=== PATIENT | male | born 1940 | race Caucasian/White ===

== ENCOUNTER → 2019-12-11 09:01 | Outpatient (BNVA) | payer MEDICARE, SELFPAY | PROVIDERS: Family Provider Nurse Practitioner Family; PCP Nurse Practitioner Family; Visit Provider Nurse Practitioner | DX: N40.0 Benign prostatic hyperplasia without lower urinary tract symptoms (principal); R97.20 Elevated prostate specific antigen [PSA] | CPT/HCPCS: 84153 ==

== ENCOUNTER 2020-01-25 13:10 | Outpatient (RCR) | payer MEDICARE, SELFPAY | END 2020-01-26 23:59 | disposition home or self-care (01) | LOC: APT 13:10 | PROVIDERS: Family Provider Nurse Practitioner Family; PCP Nurse Practitioner Family; Referring Provider Nurse Practitioner Family; Visit Provider Nurse Practitioner Family | DX: R53.1 Weakness (principal) | CPT/HCPCS: 97110; 97163 ==

== ENCOUNTER 2020-01-27 06:00 | Outpatient (RCR) | payer MEDICARE, SELFPAY | END 2020-02-26 23:59 | disposition home or self-care (01) | LOC: APT 06:00 | PROVIDERS: Family Provider Nurse Practitioner Family; PCP Nurse Practitioner Family; Referring Provider Nurse Practitioner Family; Visit Provider Nurse Practitioner Family | DX: R53.1 Weakness (principal) | CPT/HCPCS: 97110 ==

== ENCOUNTER → 2020-12-24 09:33 | Outpatient (BNVA) | payer MEDICARE, SELFPAY | PROVIDERS: Family Provider Nurse Practitioner Family; PCP Nurse Practitioner Family; Visit Provider Surgery | DX: R97.20 Elevated prostate specific antigen [PSA] (principal) | CPT/HCPCS: 84153 ==

== ENCOUNTER 2021-03-13 08:09 | Outpatient (CLI) | payer MEDICARE, SELFPAY ==
--- NOTE | 2021-03-13 | CT_ITS ---
WS: [id number] CTA scan of the abdomen pelvis. Additional two-dimensional coronal and sagittal reconstruction was pe rformed. MIP images were also performed. 03/13/2021 Clinical Data: AAA Comparison: CTA of the abdomen and pelvis, 05/11/2019. DLP: 2698.[address] scans at [facility] use at least one of these dose optimization techniques: automat ed exposure control; mA and/or kV adjustment per patient size (includes targeted exams where dose is matched to clinical indication); or iterative reconstruction. Findings: Vascular findings: The patient has an aortic stent graft which is unchanged and shows no endoleak. The [place] abdominal aortic aneurysm has enlarged and now measures 7.3 x 8.8 cm. The left internal iliac aneurysm is no lo nger present. The iliac portions of the stent graft show no leakage. The celiac artery, superior mese nteric artery and renal arteries show no abnormalities. The internal iliac arteries are patent and fl ow into the common femoral arteries. Abdominal and pelvic findings: The lower lungs show no nodules, masses or effusions. There is a large hiatal hernia unchanged. The l iver has a right lobe cyst unchanged. There is a 1.2 cm gallstone present. The adrenal glands show mi nimal enlargement unchanged. The spleen and pancreas are unremarkable. The kidneys show excellent bertha ateral contrast excretion with small bilateral cysts but no hydronephrosis or renal calculi. The stom ach, small bowel and colon are unremarkable. The prostate is enlarged. The bladder is unremarkable. T here is a small fat-containing umbilical hernia. No inguinal hernia is seen. Degenerative change and degenerative disc disease of lower thoracic vertebral bodies in all the lumbar vertebral bodies is no clara. CT/CT angio abdomen pelvis [id number] Impression: 1. No change in aortic stent graft with no endoleak. 2. Slight increase in size of [place] abdominal aortic aneurysm. 3. Removal of left iliac aneurysm. 4. Stable changes of the abdomen and pelvis.
[2021-03-13 08:50] LABS: Blood Urea Nitrogen 20 mg/dL (8-23)
[2021-03-13] MEDS: iohexol 350 mg/mL 100 mL Btl IV (09:02)
== END 2021-03-13 08:10 | disposition home or self-care (01) ==
PROVIDERS: PCP Nurse Practitioner Family; Visit Provider Surgery Vascular Surgery
DX: I71.4 Abdominal aortic aneurysm, without rupture (principal)
CPT/HCPCS: 74174; 82565; 84520; Q9967

== ENCOUNTER 2021-08-11 12:44 | Outpatient (CLI) | payer MEDICARE, SELFPAY ==
--- NOTE | 2021-08-11 12:45 | USCV_ITS ---
Tim Pack Age: 81 Gender: M : 1940 Exam Date: 08/11/2021 13:04 Ordering Phys: Marvin Carvajal MD ([email or web address]) Technologist: Mitchell Dumont Exam Location: [facility] [place] Indication: SOB BP: 134 / 73 HR: 59 Rhythm: Sinus Technical Quality: Adequate MEASUREMENTS (Male / Female) Normal Values 2D ECHO LV Diastolic Diameter PLAX 5.4 cm 4.2 - 5.9 / 3.9 - 5.3 cm LV Systolic Diameter PLAX 4.3 cm IVS Diastolic Thickness 0.9 cm 0.6 - 1.0 / 0.6 - 0.9 cm IVS Systolic Thickness 1.4 cm LVPW Diastolic Thickness 1.2 cm 0.6 - 1.0 / 0.6 - 0.9 cm LVPW Systolic Thickness 1.3 cm LVOT Diameter 2.2 cm LV Ejection Fraction 2D Teich 41.4 % LV Ejection Fraction MOD 2C 57.8 % LV Ejection Fraction 2C AL 56.4 % LA Diameter 4.4 cm LA Width 4.0 cm LA Height 4.9 cm RA Width 4.8 cm RA Height 5.9 cm Aorta at Sinotubular Diameter 3.6 cm DOPPLER AV Peak Velocity 293.3 cm/s LVOT Peak Velocity 79.0 cm/s AV Area Cont Eq vti 1.1 cm squared AV Area Cont Eq pk 1.0 cm squared MV Area PHT 5.0 cm squared Mitral E to A Ratio 0.4 MV E' Velocity 19.5 cm/s Mitral E to LV E' Lateral Ratio 9.9 TR Peak Velocity 225.3 cm/s TR Peak Gradient 20.3 mmHg TV Peak E Velocity 106.0 cm/s Right Atrial Pressure 3.0 mmHg Pulmonary Artery Systolic Pressu 23.3 mmHg FINDINGS Left Ventricle Mildly increased left ventricular cavity size. Moderately decreased left ventricular systolic function. Left ventricular ejection fraction is estimated at 40 %. Global left ventricular hypokinesis. Grade I/IV diastolic dysfunction (abnormal relaxation filling pattern), normal to mildly elevated filling pressures. Right Ventricle The right ventricle is normal in size and function. Right Atrium Normal right atrial size. Left Atrium Moderately increased left atrial size. Mitral Valve Thickened mitral valve. No mitral valve stenosis. Mild mitral valve regurgitation. Aortic Valve Bioprosthetic aortic valve sitting in normal position without significant valvular or paravalvular leak Tricuspid Valve Mild tricuspid valve regurgitation. Pulmonic Valve Structurally normal pulmonic valve without significant stenosis. There is no pulmonic regurgitation. Pericardium Normal pericardium without effusion. Aorta Normal ascending aorta dimension. CONCLUSIONS 1-Mildly increased left ventricular cavity size. Moderately decreased left ventricular systolic function. Left ventricular ejection fraction is estimated at 40 %. Global left ventricular hypokinesis. Grade I/IV diastolic dysfunction (abnormal relaxation filling pattern), normal to mildly elevated filling pressures. 2-Moderately increased left atrial size. 3-Bioprosthetic aortic valve sitting in normal position without significant valvular or paravalvular leak 4-Trace tricuspid valve regurgitation. 5-Right atrial pressure is around 5 mm of mercury. 6-When compared to the prior echocardiogram dated 05 February 2019 there is no significant difference Marvin Carvajal MD (Electronically Signed) Final Date: 11 August 2021 19:54 S
== END 2021-08-11 12:45 | disposition home or self-care (01) ==
PROVIDERS: PCP Nurse Practitioner Family; Visit Provider Internal Medicine Cardiovascular Disease
DX: R06.02 Shortness of breath (principal); I07.1 Rheumatic tricuspid insufficiency; Z95.2 Presence of prosthetic heart valve
CPT/HCPCS: 93306

== ENCOUNTER → 2021-12-24 10:25 | Outpatient (BNVA) | payer MEDICARE, SELFPAY | PROVIDERS: PCP Nurse Practitioner Family; Visit Provider Nurse Practitioner Family | DX: Z20.822 Contact with and (suspected) exposure to COVID-19 (principal) | CPT/HCPCS: 87635 ==

== ENCOUNTER → 2021-12-29 14:09 | Outpatient (BNVA) | payer MEDICARE, SELFPAY | PROVIDERS: PCP Nurse Practitioner Family; Visit Provider Nurse Practitioner | DX: R97.20 Elevated prostate specific antigen [PSA] (principal) | CPT/HCPCS: 84153 ==

== ENCOUNTER 2022-04-19 09:21 | Emergency (ER) | payer MEDICARE, SELFPAY ==
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
[2022-04-19 09:31] VITALS: BP 138/93; PULSE 75; RESP 20; TEMP 36.5; O2SAT 95; BMI 30.9
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
[2022-04-19] MEDS: iodixanol 320 mg/mL 100mL Btl IV (09:53)
[2022-04-19 10:00] VITALS: BP 144/98; PULSE 86; RESP 15; O2SAT 91
--- NOTE | 2022-04-19 10:45 | PC.NURSE ---
notified dr. cramer of blood in urine and abd discomfort he verbalized understanding no further orders.
[2022-04-19 11:00] VITALS: BP 140/97; PULSE 83; RESP 20; O2SAT 91
--- NOTE | 2022-04-19 11:41 | PC.NURSE ---
REPORT GIVEN TO ANDREI DE PAZ AT [facility].
--- NOTE | 2022-04-19 12:00 | PC.NURSE ---
REPORT GIVEN TO FENG ROOF BOLTER OPERATOR. ASSUMED CARE.
[2022-04-19 12:02] VITALS: BP 140/97; PULSE 80; RESP 20; O2SAT 90
== END 2022-04-19 12:04 | disposition short-term general hospital (02) ==
PROVIDERS: Emergency Provider Emergency Medicine
DX: Z04.1 Encounter for examination and observation following transport accident (principal); I97.89 Other postprocedural complications and disorders of the circulatory system, not elsewhere classified; R31.9 Hematuria, unspecified; Z79.01 Long term (current) use of anticoagulants
CPT/HCPCS: 70450; 71260; 72125; 74177; 99285; Q9967

== ENCOUNTER → 2022-06-03 15:19 | Outpatient (BNVA) | payer MEDICARE, SELFPAY | PROVIDERS: Visit Provider Internal Medicine | DX: I48.19 Other persistent atrial fibrillation (principal); I10 Essential (primary) hypertension; I42.9 Cardiomyopathy, unspecified; Z95.2 Presence of prosthetic heart valve; Z95.1 Presence of aortocoronary bypass graft | CPT/HCPCS: 80048; 83880; 99214 ==

== ENCOUNTER 2022-06-22 12:36 | Outpatient (CLI) | payer MEDICARE, SELFPAY ==
[2022-06-22 13:34] LABS: Anion Gap 13.9 (5-19); Blood Urea Nitrogen 19 mg/dL (8-23); Calcium 9.1 mg/dL (8.5-10.5); Carbon Dioxide 24 mmol/L (22-29); Chloride 106 mmol/L (98-107); Glucose 121 mg/dL (65-115); NT Pro B Type Natriuretic Pept 1441 pg/mL (0-450); Osmolality Calculated 294 mOsm/kg (285-295); Potassium 3.9 mmol/L (3.5-5.1); Sodium 140 mmol/L (136-145)
== END 2022-06-22 12:37 | disposition home or self-care (01) ==
LOC: LAB 12:44
PROVIDERS: Visit Provider Internal Medicine
DX: I10 Essential (primary) hypertension (principal); I48.19 Other persistent atrial fibrillation; Z86.79 Personal history of other diseases of the circulatory system
CPT/HCPCS: 36415; 80048; 83880

== ENCOUNTER 2022-09-01 13:57 | Outpatient (CLI) | payer MEDICARE, SELFPAY ==
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
== END 2022-09-01 13:58 | disposition home or self-care (01) ==
PROVIDERS: PCP Family Medicine; Visit Provider Internal Medicine
DX: R01.1 Cardiac murmur, unspecified (principal); Z95.2 Presence of prosthetic heart valve; I08.1 Rheumatic disorders of both mitral and tricuspid valves; I27.20 Pulmonary hypertension, unspecified
CPT/HCPCS: 93306

== ENCOUNTER 2023-01-17 06:00 | Outpatient (RCR) | payer MEDICARE, SELFPAY | END 2023-01-25 23:59 | disposition home or self-care (01) | LOC: APT 06:00 | PROVIDERS: PCP Family Medicine; Visit Provider Family Medicine | DX: I48.91 Unspecified atrial fibrillation (principal); Z86.79 Personal history of other diseases of the circulatory system; Z95.1 Presence of aortocoronary bypass graft | CPT/HCPCS: 97110; 97112; 97161 ==

== ENCOUNTER 2023-01-27 09:01 | Inpatient (IN) | payer MEDICARE, SELFPAY ==
[2023-01-27] VITALS (55 sets, daily range): BP systolic 122–198; BP diastolic 96–123; PULSE 77–127; RESP 16–47; TEMP 36.3; O2SAT 83–96; BMI 25.6
--- NOTE | 2023-01-27 09:13 | ECG_ITS ---
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 Measurements Intervals Hydes Rate: 108 P: 0 MO: 0 QRS: -17 QRSD: 101 T: 120 QT: 344 QTc: 462 Interpretive Statements ATRIAL FIBRILLATION WITH RAPID VENTRICULAR RESPONSE MINIMAL VOLTAGE CRITERIA FOR LVH, CONSIDER NORMAL VARIANT [MEETS CRITERIA IN ONE OF: R(aVL), S(V1), R(V5), R(V5/V6)+S(V1)] POSSIBLE ANTERIOR MYOCARDIAL INFARCTION , OF INDETERMINATE AGE [30 ms Q WAVE IN V3/V4, OR R < 0.2 mV IN V4] MODERATE T-WAVE ABNORMALITY, CONSIDER LATERAL ISCHEMIA [-0.1+ mV T-WAVE IN I/aVL/V5/V6] WARNING: DATA QUALITY MAY AFFECT INTERPRETATION INTERPRETATION BASED ON A DEFAULT AGE OF 40 YEARS No previous ECG available for comparison Electronically Signed On 01-27-2023 18:05:06 PLANER TAILER by Sachin Mercer M.D. [id number] f
--- NOTE | 2023-01-27 09:15 | XRR_ITS ---
PROCEDURE INFORMATION: Exam: XR Chest Exam date and time: 01/27/2023 9:22 AM Age: 83 years old Clinical indication: Pain; Shortness of breath; Angina pectoris; Additional info: Chest pain TECHNIQUE: Imaging protocol: Radiologic exam of the chest. Views: 1 view. COMPARISON: CT chest abdpel w/*[id number] 04/19/2022 9:52 AM FINDINGS: Lungs: There is redistribution and indistinctness of the pulmonary vasculature, in association with haziness of the lungs and small bilateral pleural effusions, which in the setting of cardiomegaly is consistent with pulmonary edema. Pneumonia should be excluded clinically. No pneumothorax. Pleural spaces: See Lungs finding. Heart/Mediastinum: Stable cardiomediastinal silhouette. Vasculature: Abdominal aortic stent is partially included. Bones/joints: Median sternotomy changes seen. Degenerative changes of the spine seen. XR/XR chest 1V portable [id number] IMPRESSION: Imaging findings of pulmonary edema with small bilateral pleural effusions. Pneumonia should be excluded clinically.
[2023-01-27 10:27] LABS: Basophils # 0.1 10^3/uL (0.0-0.1); Basophils % 0.6 %; Eosinophils # 0.1 10^3/uL (0.0-0.8); Eosinophils % 0.7 %; Hematocrit 37.5 % (42.0-52.0); Hemoglobin 11.2 g/dL (11.7-16.6); Lymphocytes # 1.4 10^3/uL (0.8-4.8); Lymphocytes % 16.2 %; Mean Corpuscular HGB Conc 29.9 g/dL (30.0-36.0); Mean Corpuscular Hemoglobin 25.5 pg (28.0-34.0); Mean Corpuscular Volume 85.4 fl (80-94); Monocytes # 0.8 10^3/uL (0.2-0.9); Monocytes % 9.1 %; Neutrophils # 6.41 10^3/uL (1.8-7.7); Neutrophils % 72.9 %; Nucleated Red Blood Cells % 0 %; Platelet Count 190 10^3/cmm (130-400); Red Blood Count 4.39 10^6/uL (4.1-5.3); Red Cell Distribution Width 16.4 % (12.1-15.1); White Blood Count 8.8 10^3/uL (4.0-10.0)
--- NOTE | 2023-01-27 10:32 | W.ED.SOB ---
HPI - SOB/Dyspnea General: Chief Complaint: Shortness of Breath/Dyspnea Stated Complaint: Spurling sent for cardiac Time Seen by Provider: 01/27/23 09:24 Source: patient and family Mode of arrival: ambulatory Limitations: no limitations History of Present Illness: HPI Narrative: This patient was referred to the emergency department from primary care office this morning. He apparently is developed sensation of shortness of breath over the last 3 days. There was no associated chest pain. He states he has not been short of breath like this in the past. He denies any recent illness to include cough fever upper airway congestion etc. 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 No history of thromboembolic events. He is currently taking Eliquis. He has had a history of intermittent atrial fibrillation since his most recent surgery. Denies any nausea vomiting diarrhea dysuria etc. MD elicited complaint: shortness of breath Associated symptoms: Deny abdominal pain, chest pain, extremity pain, fever(s), nausea, palpitations, syncope or vomiting Related Data: Home oxygen amount: none Review of Systems Const: Denies: fever(s), chills or body aches ENMT: Denies: throat pain, odynophagia, nasal discharge or nasal congestion Card: Reports: irregular heart rhythm; Denies: chest pain, palpitations, edema, syncope or pre-syncope Resp: Reports: dyspnea; Denies: productive cough or non-productive cough GI: Denies: abdominal pain, nausea or vomiting : Denies: flank pain, difficulty urinating or dysuria Musc: Denies: back pain, extremity pain or extremity swelling Skin/Breast: Denies: rash Neuro: Denies: headache(s), numbness in extremities or weakness in extremities PFSH ED PFSH: Medical History A-fib Ascending aorta dilatation Coronary artery disease History of hypertension Hx of cardiomyopathy Surgical History Aortic valve replaced Hx of aortic valve replacement Hx of CABG Social History Smoking and tobacco status: never smoked Physical Exam Narrative: EXAM NARRATIVE: Patient is very alert and interactive. Spontaneous eye opening and speech is goal-directed. Const: COMMON NORMALS: no acute distress, average body habitus and patient oriented x3 GENERAL APPEARANCE: cooperative and comfortable HENMT: COMMON NORMALS: normocephalic, Normal nasal mucous membranes and turbinates present, moist oral mucous membranes and oropharynx normal HEAD & SCALP: normocephalic NOSE: Normal nasal mucous membranes and turbinates present Eye: COMMON NORMALS: Equal, round and reactive pupils present, EOMs intact bilaterally and conjunctivae normal CONJUNCTIVA: Yes conjunctivae normal PUPIL: Yes Equal, round and reactive pupils present Neck/C-Spine: COMMON NORMALS: full ROM, no lymphadenopathy and supple Chest: COMMONS NORMALS: normal inspection of the chest and normal palpation of entire chest wall Resp: EFFORT & INSPECTION: Yes tachypneic AUSCULTATION: wheezes Cardio: COMMON NORMALS: No murmurs present (Cardio) and Peripheral pulses 2+ throughout RHYTHM: abnormal rhythm irregularly irregular PERIPHERAL PULSES: Peripheral pulses 2+ throughout GI: COMMON NORMALS: Normal to inspection, nondistended, normoactive bowel sounds present, Soft to palpation and non-tender PALPATION: Yes Soft to palpation : COMMON NORMALS: Yes no CVA tenderness BLADDER/KIDNEY EXAM: Yes no CVA tenderness Back/Pelvis: COMMON NORMALS: no CVA tenderness, thoracic and lumbar spine normal to inspection, no thoracic nor lumbar tenderness and thoraco-lumbar ROM normal Extremity: COMMON NORMALS: normal to inspection, full ROM, capillary refill normal, no calf tenderness and no pedal edema Neuro: COMMON NORMALS: patient oriented x3, moves all extremities, no focal motor deficits and no sensory deficits noted CRANIAL NERVES: Yes CN normal except as noted Psych: COMMON NORMALS: mental status grossly normal and cooperative Skin: COMMON NORMALS: no rashes or lesions noted, no wounds and turgor normal GENERAL SKIN EXAM: no rashes or lesions noted and turgor normal Course Reevaluation(s): Reevaluation #1: During pharmacy reconciliation of his medications we became aware that his is only giving him a half his usual recommended dose of Eliquis and half of his usual dose of valsartan. Time: 11:28 Vital Signs: Vital signs: Vital Signs Pulse Rate 96 01/27/23 12:30 Respiratory Rate 16 01/27/23 10:48 Blood Pressure 139/96 01/27/23 12:00 Pulse Oximetry 94 01/27/23 12:30 Oxygen Delivery Me thod 01/27/23 10:48 Oxygen Flow Rate 2 01/27/23 10:48 MDM - SOB/Dyspnea Medical Decision Making This gentleman made his way to the emergency department after referred from his primary care office for progressive shortness of breath over the last 3 days without fever or chest pain. Does have a known history of coronary disease with prior bypass as well as valve replacement. He is prescribed Eliquis and valsartan but apparently his has been reducing those doses unbeknownst to his clinicians. Work-up ensued in the emergency department was notable in that he had a initial EKG which showed rapid ventricular response in the 1 10-1 15 range with no elevation in his baseline troponin with a essentially unchanged serial troponin. Serial EKGs were also were obtained which revealed more controlled ventricular rate with sustained A-fib without any evidence of ischemic changes. A CT PA was obtained because of reduced anticoagulant dosing to ensure no evidence of pulmonary embolus. That was a reassuring study and confirmed his clinical and biochemical diagnosis of likely right heart failure which may have been either precipitated by his atrial fibs or vice versa. No evidence of a ongoing ischemia but probably myocardial injury related to his ventricular strain. [facility] further evaluation for his condition. Differential Diagnosis Likely congestive heart failure; Unlikely acute exacerbation of chronic obstructive airways disease, community acquired pneumonia or pulmonary embolism Medical Records I reviewed the patient's medical records. Lab Data I reviewed the patient's lab results. 01/27/23 10:15 01/27/23 10:15 Labs/Radiology: Radiology Impressions Chest X-Ray 01/27/23 09:15 IMPRESSION: Imaging findings of pulmonary edema with small bilateral pleural effusions. Pneumonia should be excluded clinically. Chest CTA 01/27/23 10:37 IMPRESSION: 1. No pulmonary embolism through the lobar branches. 2. No RIGHT heart strain. 3. Marked LEFT heart enlargement. 4. Tricuspid regurgitation into hepatic veins. 5. Small bilateral pleural effusions with mild pulmonary venous congestion. 6. Moderate size hiatal hernia. Laboratory Results WBC 8.8 10^3/uL (4.0-10.0) 01/27/23 10:15 RBC 4.39 10^6/uL (4.1-5.3) 01/27/23 10:15 Hgb 11.2 g/dL (11.7-16.6) L 01/27/23 10:15 Hct 37.5 % (42.0-52.0) L 01/27/23 10:15 MCV 85.4 fl (80-94) 01/27/23 10:15 MCH 25.5 pg (28.0-34.0) L 01/27/23 10:15 MCHC 29.9 g/dL (30.0-36.0) L 01/27/23 10:15 RDW 16.4 % (12.1-15.1) H 01/27/23 10:15 Plt Count 190 10^3/cmm (130-400) 01/27/23 10:15 MPV 10.0 fL (7.4-10.4) 01/27/23 10:15 Neut % (Auto) 72.9 % 01/27/23 10:15 Lymph % (Auto) 16.2 % 01/27/23 10:15 [place] % (Auto) 9.1 % 01/27/23 10:15 Eos % (Auto) 0.7 % 01/27/23 10:15 Baso % (Auto) 0.6 % 01/27/23 10:15 Neut # (Auto) 6.41 10^3/uL (1.8-7.7) 01/27/23 10:15 Lymph # (Auto) 1.4 10^3/uL (0.8-4.8) 01/27/23 10:15 [place] # (Auto) 0.8 10^3/uL (0.2-0.9) 01/27/23 10:15 Eos # (Auto) 0.1 10^3/uL (0.0-0.8) 01/27/23 10:15 Baso # (Auto) 0.1 10^3/uL (0.0-0.1) 01/27/23 10:15 Nucleated RBC % (auto) 0 % 01/27/23 10:15 Nucleated RBCs # 0.0 /100WBC 01/27/23 10:15 Sodium 147 mmol/L (136-145) H 01/27/23 10:15 Potassium 3.9 mmol/L (3.5-5.1) 01/27/23 10:15 Chloride 112 mmol/L (98-107) H 01/27/23 10:15 Carbon Dioxide 20 mmol/L (22-29) L 01/27/23 10:15 Anion Gap 18.9 (5-19) 01/27/23 10:15 BUN 38 mg/dL (8-23) H 01/27/23 10:15 Creatinine 1.0 mg/dL (0.7-1.2) 01/27/23 10:15 GFR Calculation Not Reportable 01/27/23 10:15 Glucose 148 mg/dL (65-115) H 01/27/23 10:15 Calculated Osmolality 316 mOsm/kg (285-295) H 01/27/23 10:15 Calcium 9.6 mg/dL (8.5-10.5) 01/27/23 10:15 Total Bilirubin 0.4 mg/dL (0.15-1.2) 01/27/23 10:15 AST 62 U/L (0-40) H 01/27/23 10:15 ALT 86 U/L (0-41) H 01/27/23 10:15 Alkaline Phosphatase 73 U/L (40-130) 01/27/23 10:15 Troponin T Baseline 326 ng/L (0-15) H* 01/27/23 10:15 Troponin T 120 Minute 322.3 ng/L (0-15) H 01/27/23 12:14 Delta Troponin T -3.7 ABS# (0-10) L 01/27/23 12:14 NT-Pro-B Natriuret Pep 93277 pg/mL (0-450) H 01/27/23 10:15 Total Protein 6.4 g/dL (6.6-8.7) L 01/27/23 10:15 Albumin 4.1 g/dL (3.5-5.2) 01/27/23 10:15 Globulin 2.3 g/dL (1.3-4.6) 01/27/23 10:15 EKG Data EKG 1: I personally reviewed and interpreted this EKG as follows: Interpretation: Contemporaneous review of resting EKG reveals atrial fibrillation with a rapid ventricular response of 108 bpm. There is normal QTc. Normal QRS duration. Occasional extrasystoles. No acute ischemic changes at this time. EKG 2: I personally reviewed and interpreted this EKG as follows: Interpretation: Contemporaneous review of second EKG this visit reveals atrial fibrillation with a controlled ventricular response at this time. No other acute changes noted at this time. Discharge Plan Discharge Patient Disposition: Admitted As Inpatient Clinical Impression: A-fib, Congestive heart failure, Myocardial injury Condition: Stable Prescriptions: No Action latanoprost 0.005 % drops 1 drop ophthalmic (eye) BEDTIME Rx Instructions: BOTH EYES multivitamin Tablet 1 tab PO QPM coenzyme Q10 [CoQ-10] 100 mg Capsule 100 mg PO QPM valsartan 40 mg tablet 20 mg PO QPM Eliquis 5 mg tablet 2.5 mg PO QPM Referrals: Gómez Figueroa MD [Primary Care Provider] - Coding Level of Care Code ED Automation Clerk for Gretta Cedeño
--- NOTE | 2023-01-27 10:37 | CT_ITS ---
WS: [id number] CT CHEST ANGIOGRAPHY WITH REFORMATS HISTORY: tachypnea and sob TECHNIQUE: Contiguous axial images are obtained through the chest during arterial injection of intrav enous contrast. Images are reconstructed to evaluate the pulmonary arteries. MIP imaging also reviewe d. All CT scans at [facility] use at least one of these dose optimization techniques: automat ed exposure control; mA and/or kV adjustment per patient size (includes targeted exams where dose is matched to clinical indication); or iterative reconstruction. CONTRAST: Omnipaque 350; 95 mL IV. DLP: 361.44 mGy.cm COMPARISON: 04/19/2022 Study is compromised by motion and breathing artifact. Good opacification of the pulmonary artery. Centrally into the lobar branches no pulmonary embolism. Opacification becomes limited in the segmental branches. Pulmonary artery size is normal. Mildly ecta tic thoracic aorta. No aneurysmal dilatation. Prior CABG. Marked LEFT heart enlargement. Tricuspid re gurgitation into hepatic veins. No pericardial effusion. Small bilateral pleural effusions with mild hazy opacification over both lungs from venous congestion . No mediastinal or hilar adenopathy. Large hiatal hernia. LEFT hepatic cyst 1.5 cm. Heavy calcification in the splenic artery. Marked bila teral adrenal hyperplasia, LEFT greater than RIGHT. Thoracic curvature and advanced degenerative kerr ges. CT/CT angio chest PE protcl [id number] IMPRESSION: 1. No pulmonary embolism through the lobar branches. 2. No RIGHT heart strain. 3. Marked LEFT heart enlargement. 4. Tricuspid regurgitation into hepatic veins. 5. Small bilateral pleural effusions with mild pulmonary venous congestion. 6. Moderate size hiatal hernia.
--- NOTE | 2023-01-27 10:44 | PC.PHAR ---
pts verified pts medications-rx filled 01/14/23 90d/s for eliquis 5mg bid pts states she only give 1/2 tab (2.5mg) qpm-valsartan filled 01/03/23 90d/s for 40mg qpm pts states she gives 1/2 tab (20mg)qpm-notes are made in the pharmacy comments
[2023-01-27] MEDS: ipratropium-albuterol 3 mL Neb INHALATION (10:46)
[2023-01-27 10:51] LABS: Alanine Aminotransferase 86 U/L (0-41); Albumin Level 4.1 g/dL (3.5-5.2); Alkaline Phosphatase 73 U/L (40-130); Anion Gap 18.9 (5-19); Aspartate Amino Transferase 62 U/L (0-40); Blood Urea Nitrogen 38 mg/dL (8-23); Calcium 9.6 mg/dL (8.5-10.5); Carbon Dioxide 20 mmol/L (22-29); Chloride 112 mmol/L (98-107); Globulin 2.3 g/dL (1.3-4.6); Glucose 148 mg/dL (65-115); NT Pro B Type Natriuretic Pept 13052 pg/mL (0-450); Osmolality Calculated 316 mOsm/kg (285-295); Potassium 3.9 mmol/L (3.5-5.1); Sodium 147 mmol/L (136-145); Total Bilirubin 0.4 mg/dL (0.15-1.2); Total Protein 6.4 g/dL (6.6-8.7)
[2023-01-27 10:52] LABS: Troponin(5th) Baseline 326 ng/L (0-15)
--- NOTE | 2023-01-27 11:24 | ECG_ITS ---
[facility] Test Date: 2023-01-27 Pat Name: Tim Pack Department: Room: Gender: Male Fuel Quality Tech: : 1940 Requested By: Shasta Gamez Order Number: [id number] Marisa MD: Sachin Mercer M.D. Measurements Intervals [place] Rate: 88 P: 0 IA: 0 QRS: -22 QRSD: 100 T: 142 QT: 386 QTc: 467 Interpretive Statements ATRIAL FIBRILLATION MODERATE VOLTAGE CRITERIA FOR LVH, CONSIDER NORMAL VARIANT [MEETS CRITERIA IN ONE OF: R(aVL), S(V1), R(V5), R(V5/V6)+S(V1)] POSSIBLE ANTERIOR MYOCARDIAL INFARCTION , OF INDETERMINATE AGE [30 ms Q WAVE IN V3/V4, OR R < 0.2 mV IN V4] MODERATE T-WAVE ABNORMALITY, CONSIDER LATERAL ISCHEMIA [-0.1+ mV T-WAVE IN I/aVL/V5/V6] Compared to ECG 01/27/2023 09:13:37 No significant changes Electronically Signed On 01-27-2023 18:12:33 SECURITY INCIDENT RESPONSE SPECIALIST by Sachin Mercer M.D. [id number]
[2023-01-27] MEDS: iohexol 350 mg/mL 500 mL Btl (per mL) 95 ML IV (12:03)
[2023-01-27 12:54] LABS: Troponin 5 2HR Delta -3.7 ABS# (0-10)
[2023-01-27 12:55] LABS: Troponin 5 2HR 322.3 ng/L (0-15)
--- NOTE | 2023-01-27 13:04 | PM.HP ---
Providers/Chief Complaint Primary Care Provider: Gómez Figueroa MD Chief Complaint: Henry sent for cardiac History of Present Illness Tim Pack is a 83 year old male bovine aortic valve, triple CABG, afib, takes Eliquis, presented with chief complaint of worsening of shortness of breath. Patient has been increasing dyspnea on exertion for last 1 week, he could barely take 5-10 steps on ground level, no chest pain, fever, nausea, vomiting but he is describing his shortness of breath as choking sensation, in the ER he has been diagnosed with CHF exacerbation, CTA ruled out PE, vascular congestion evident on chest x-ray and CTA lung. EKG showing A-fib related changes no acute infarctive changes present. Patient is legally blind, is at the bedside who helped to get more history, Patient is not in any active chest pain Blood pressure is high I will put him on BiPAP, required Andres catheter, IV Lasix 60 mg, might need nitroglycerin drip Dr. Reyes consulted for NSTEMI I have started patient on ACS protocol, therapeutic Plavix and aspirin given patient troponin 326 Review of Systems Const: Denies: fever(s) Eyes: Denies: change in vision ENMT: Denies: throat pain Card: Denies: chest pain Resp: Reports: dyspnea GI: Denies: abdominal pain or heartburn : Denies: urinary dribbling Skin/Breast: Denies: rash Neuro: Denies: headache(s) Psych: Denies: anxiety Endo: Denies: polyuria Jerry/Lymph: Denies: easy bruising All/Imm: Denies: urticaria Medications/Allergies Home Medications Medication Instructions Recorded Confirmed Last Taken Type latanoprost 0.005 % eye drops 1 drop ophthalmic (eye) BEDTIME 06/03/20 01/27/23 01/26/23 History coenzyme Q10 100 mg capsule 100 mg PO QPM 04/19/22 01/27/23 01/26/23 History (CoQ-10) multivitamin 1 tab PO QPM 04/19/22 01/27/23 01/26/23 History apixaban 5 mg tablet (Eliquis) 2.5 mg PO QPM 01/27/23 01/27/23 01/26/23 History see pharmacy comment valsartan 40 mg tablet 20 mg PO QPM 01/27/23 01/27/23 01/26/23 History see pharmacy comment Allergies Allergy/AdvReac Type Severity Reaction Status Date / Time Penicillins Allergy Unknown Verified 01/27/23 10:41 Sulfa (Sulfonamide Allergy Unknown Verified 01/27/23 10:41 Antibiotics) PFSH Acute PFSH: Medical History (Updated 01/27/23 @ 14:33 by Marvin Bautista MD) A-fib Ascending aorta dilatation Coronary artery disease History of hypertension Hx of arteriosclerotic cardiovascular disease Hx of cardiomyopathy Hx of chest pain Surgical History (Updated 01/27/23 @ 14:33 by Marvin Bautista MD) Aortic valve replaced Hx of aortic valve replacement Hx of appendectomy Hx of CABG Hx of right cataract extraction Family History (Updated 01/27/23 @ 14:32 by Marvin Bautista MD) Denies family history of CAD (coronary artery disease) Social History Smoking and tobacco status: never smoked Vitals/I&O/Wt Last Vital Signs Pulse 96 01/27/23 12:30 Resp 16 01/27/23 10:48 BP 139/96 01/27/23 12:00 Pulse Ox 94 01/27/23 12:30 O2 Del Method 01/27/23 10:48 O2 Flow Rate 2 01/27/23 10:48 Weight last 48 hrs Weight 67.585 kg Physical Exam Narrative: Was not cooperative elderly male Mild CHF exacerbation signs Bilateral rhonchi present Currently on 2 L nasal cannula Hypertensive No active chest pain S1, S2 aortic systolic murmur Abdomen soft Lower extremity 1+ edema Patient is legally blind Able to answer all my questions Pleasant and cooperative at the bedside Data 01/27/23 10:15 01/27/23 10:15 A&P Assessment and plan (1) Congestive heart failure: (2) Myocardial injury: (3) Hx of CABG: (4) Aortic valve replaced: (5) History of hypertension: (6) A-fib: (7) NSTEMI (non-ST elevated myocardial infarction): Plan Patient has angina equivalent symptoms Dyspnea on exertion Pulmonary edema Drowning feeling Put patient on BiPAP Andres catheter placement IV Lasix Requested echo Dr. Reyes consulted EKG without infarctive changes Troponin with significant elevation Chest pain Might need angiogram History of triple bypass in the past Bovine aortic valve in place A-fib without RVR Switch to therapeutic Lovenox Hold Eliquis Last dose of Eliquis was yesterday night 3/ Acute hypoxia related to CHF exacerbation Diastolic CHF exacerbation Decompensated Wean oxygen to room air before discharge Currently requiring oxygen BiPAP overnight Hypernatremia Monitor closely with diuresis Patient clinically is fluid overload Full code Cardiac diet CT rule out PE Patient is legally blind DVT prophylaxis: With therapeutic Lovenox Spoke with Dr. Eric Jauregui Medical Necessity Statement*: More than 2 midnights anticipated Diagnoses Congestive heart failure I50.9 Myocardial injury I5A Hx of CABG Z95.1 Aortic valve replaced Z95.2 History of hypertension Z86.79 A-fib I48.91 NSTEMI (non-ST elevated myocardial infarction) I21.4
--- NOTE | 2023-01-27 14:02 | USCV_ITS ---
Tim Pack Age: 83 Gender: M : 1940 Exam Date: 01/27/2023 14:50 Ordering Phys: Marvin Bautista MD Technologist: Mitchell Dumont [place] [facility] [place]: unstable angina BP: 140 / 76 HR: 85 Rhythm: Sinus Technical Quality: Adequate MEASUREMENTS (Male / Female) Normal Values 2D ECHO LV Diastolic Diameter PLAX 6.2 cm 4.2 - 5.9 / 3.9 - 5.3 cm LV Systolic Diameter PLAX 4.4 cm IVS Diastolic Thickness 1.3 cm 0.6 - 1.0 / 0.6 - 0.9 cm IVS Systolic Thickness 1.6 cm LVPW Diastolic Thickness 1.1 cm 0.6 - 1.0 / 0.6 - 0.9 cm LVPW Systolic Thickness 1.4 cm LVOT Diameter 2.0 cm LV Ejection Fraction 2D Teich 54.2 % LV Ejection Fraction MOD 2C 40.1 % LV Ejection Fraction 2C AL 40.3 % LA Diameter 5.6 cm Aorta at Sinotubular Diameter 4.5 cm M-MODE Aortic Annulus Diameter 5.0 cm LA Ao Ratio MM 1.0 MV E Point Septal Separation 1.4 cm FINDINGS Left Ventricle Mildly dilated left-ventricle. Severe diffuse hypokinesia of the septum, anteroseptum and LV apex. LV ejection fraction around 30-35%, visual Right Ventricle Appears to be of normal size and ejection fraction Right Atrium Appears to be of normal size Left Atrium Moderately increased left atrial size. Mitral Valve Thickened mitral valve. Aortic Valve Minimally thickened tissue valve Tricuspid Valve No gross abnormalities noted Pulmonic Valve Pulmonic valve not well visualized. Pericardium No pericardial effusion. Aorta Dilated aortic root, measuring 4.6 cm at the level of the sinuses and 4.5 cm at the level of the sinotubular junction IVC Inferior vena cava not visualized. CONCLUSIONS Mildly dilated left-ventricle. Severe diffuse hypokinesia of the septum, anteroseptum and LV apex. LV ejection fraction around 30-35%, visual. Moderately increased left atrial size. Thickened mitral valve. Minimally thickened tissue valve at the aortic position Aortic root measured 4.6 cm at the level of the sinuses . There is no pericardial effusion. Compared to the study from 09/01/2022, there is slight drop in the LV ejection fraction Dr Naty Reyes MD FAC (Electronically Signed) Final Date: 27 January 2023 18:47 S
[2023-01-27 14:58] LABS: Thyroid Stimulating Hormone 2.85 uIU/mL (0.27-4.20)
--- NOTE | 2023-01-27 15:15 | ECG_ITS ---
[facility] Test Date: 2023-01-27 Pat Name: Tim Pack Department: Room: 108 Gender: Male General Internist And Physician Leader: : 1940 Requested By: Shasta Gamez Order Number: [id number] Cunningham MD: Sachin Mercer M.D. Measurements Intervals [place] Rate: 83 P: 0 CO: 0 QRS: -31 QRSD: 103 T: 124 QT: 411 QTc: 486 Interpretive Statements ATRIAL FIBRILLATION LEFT AXIS DEVIATION [QRS AXIS < -30] MODERATE VOLTAGE CRITERIA FOR LVH, CONSIDER NORMAL VARIANT [MEETS CRITERIA IN ONE OF: R(aVL), S(V1), R(V5), R(V5/V6)+S(V1)] POSSIBLE ANTERIOR MYOCARDIAL INFARCTION , OF INDETERMINATE AGE [30 ms Q WAVE IN V3/V4, OR R < 0.2 mV IN V4] MODERATE T-WAVE ABNORMALITY, CONSIDER LATERAL ISCHEMIA [-0.1+ mV T-WAVE IN I/aVL/V5/V6] Compared to ECG 01/27/2023 11:24:28 Left-axis deviation now present Myocardial infarct finding still present T-wave abnormality still present Possible ischemia still present Electronically Signed On 01-27-2023 18:09:53 C S S REPRESENTATIVE by Sachin Mercer M.D. [id number]
[2023-01-27] MEDS: FUROsemide 10 mg/mL SDV 10mL 60 MG IVP (16:51)
[2023-01-27] MEDS: aspirin 325 mg EC Tablet PO (16:51)
[2023-01-27] MEDS: clopidogrel 300 mg Tablet PO (17:24)
--- NOTE | 2023-01-27 17:53 | PM.CONSULT ---
Providers/Reason For Consult Consulting Physician/Specialty*: PAULA Reyes MD/cardiology Reason for Consult*: Patient is a shortness of breath/features of CHF/elevated troponin T Requesting Physician: Dr. Bautista Attending Physician: Marvin Bautista MD Primary Care Provider: Gómez Figueroa MD History of Present Illness History of Present Illness Tim Pack is a 83 year old male with a history of coronary artery disease, status post coronary bypass surgery, status post ascending aortic aneurysm repair, he is presenting with progressive shortness of breath for the last 4 days. This patient is known to have LV dysfunction. The LV ejection fraction was around 30 to 35% by echocardiogram in August of last year. He apparently has been in his baseline state of health up until the last Tuesday when he started having shortness of breath with activities. The shortness of breath has been gradually getting worse. He also has been having a dry cough and some swelling of the lower extremities. No fever, chills. No abdominal pain or dysuria. No other associated symptoms. This patient had a PCI at the [facility] 10 years ago. He underwent a three-vessel coronary bypass surgery in 2012 along with aortic aneurysm repair. Apparently the aneurysm repair did not work well and he had to go for a redo surgery at the [facility] in [place] later on. Since the redo surgery, he has been doing okay with no significant symptoms. He has not had any chest pain. Even before the bypass surgery, his main symptom was shortness of breath. He also is known to have atrial fibrillation and is on long-term oral anticoagulation. He has a history of hematuria. The dose of the Eliquis was cut back to 2.5 mg p.o. once a day. Review of Systems Narrative: CONSTITUTIONAL: No fever or chills. EYES: No blurring of vision or other visual disturbances lately. ENT: No hoarseness of voice, auditory disturbances or sore throat. CARDIOVASCULAR: As mentioned above. RESPIRATORY: Shortness of breath as mentioned GASTROINTESTINAL: No hematemesis or melena. GENITOURINARY: History of BPH and hematuria INTEGUMENTARY: No skin rashes or history of skin cancer. NEURO: No transient ischemic attacks or amaurosis. PSYCHIATRIC: No history of psychosis or major depression. HEMATOLOGIC: History of hematuria with the higher dose of Eliquis ENDOCRINE: No history of polyuria or polydipsia. MUSCULOSKELETAL: No recent joint pain or swelling. ALLERGY/IMMUNOLOGY: As mentioned above. Medications/Allergies Home Medications Medication Instructions Recorded Confirmed Last Taken Type latanoprost 0.005 % eye drops 1 drop ophthalmic (eye) BEDTIME 06/03/20 01/27/23 01/26/23 History coenzyme Q10 100 mg capsule 100 mg PO QPM 04/19/22 01/27/23 01/26/23 History (CoQ-10) multivitamin 1 tab PO QPM 04/19/22 01/27/23 01/26/23 History apixaban 5 mg tablet (Eliquis) 2.5 mg PO QPM 01/27/23 01/27/23 01/26/23 History see pharmacy comment valsartan 40 mg tablet 20 mg PO QPM 01/27/23 01/27/23 01/26/23 History see pharmacy comment Allergies Allergy/AdvReac Type Severity Reaction Status Date / Time Penicillins Allergy Unknown Verified 01/27/23 10:41 Sulfa (Sulfonamide Allergy Unknown Verified 01/27/23 10:41 Antibiotics) Current Medications Generic Name Dose Route Start Last Admin Trade Name Freq PRN Reason Stop Dose Admin Enoxaparin Sodium 70 mg 01/27/23 15:00 01/27/23 16:52 Enoxaparin 80 Mg/0.8 Ml Syringe SUBCUT Not Given Q12H KULWINDER Furosemide 60 mg 01/27/23 16:33 01/27/23 16:51 Furosemide 10 Mg/Ml Sdv 10ml IVP 60 mg Q12H KULWINDER Administration PFSH Acute PFSH: Medical History A-fib Ascending aorta dilatation Coronary artery disease History of hypertension Hx of arteriosclerotic cardiovascular disease Hx of cardiomyopathy Hx of chest pain Surgical History Aortic valve replaced Hx of aortic valve replacement Hx of appendectomy Hx of CABG Hx of right cataract extraction Family History Denies family history of CAD (coronary artery disease) Social History Smoking and tobacco status: never smoked Vitals/I&O/Wt Last Vital Signs Pulse 98 01/27/23 13:30 Resp 16 01/27/23 10:48 BP 140/104 01/27/23 13:30 Pulse Ox 91 01/27/23 13:30 O2 Del Method 01/27/23 10:48 O2 Flow Rate 2 01/27/23 10:48 Weight last 48 hrs Weight 149 lb 6 oz Weight 149 lb Physical Exam Narrative: GENERAL: The patient is alert and oriented times three. Not in any acute distress. He is blind bilaterally HEENT: No significant pallor, icterus or lymphadenopathy.Oral cavity: There are no mucous membrane lesions. NECK: Trachea appears to be central. No masses noted. No JVD or thyromegaly appreciated. RESPIRATORY: Chest is symmetrical. No intercostals muscle retraction or any accessory muscle activation. There is no chest wall tenderness. Breath sounds are heard bilaterally. No rales or rhonchi heard. No evidence of any consolidation. BREASTS: Deferred. HEART: Short systolic murmur at the base of the heart. No diastolic murmurs.. No S3 or S4. No significant murmurs. No pericardial rub ABDOMEN: No vessel pulsations or distention. No tenderness. No organomegaly appreciated. Bowel sounds are normally heard. : Deferred. RECTAL: Deferred. LYMPHATIC: No lymphadenopathy noted in the neck. EXTREMITIES: 1+ edema with no cyanosis MUSCULOSKELETAL: No acute joint deformities or swelling SKIN: There are no significant rashes or ecchymosis NEUROPSYCHIATRIC: The patient is alert and oriented x3. Appears to be in a good mood. No tremors or rigidity noted. Urinary Catheter Management: Andres: Cath Placed During This Visit: yes Urinary Catheter Date of Insertion: 01/27/23 Urinary Catheter Time of Insertion: 15:50 Data 01/27/23 10:15 01/27/23 10:15 Other Labs: Laboratory Last Values WBC 8.8 10^3/uL (4.0-10.0) 01/27/23 10:15 RBC 4.39 10^6/uL (4.1-5.3) 01/27/23 10:15 Hgb 11.2 g/dL (11.7-16.6) L 01/27/23 10:15 Hct 37.5 % (42.0-52.0) L 01/27/23 10:15 MCV 85.4 fl (80-94) 01/27/23 10:15 MCH 25.5 pg (28.0-34.0) L 01/27/23 10:15 MCHC 29.9 g/dL (30.0-36.0) L 01/27/23 10:15 RDW 16.4 % (12.1-15.1) H 01/27/23 10:15 Plt Count 190 10^3/cmm (130-400) 01/27/23 10:15 MPV 10.0 fL (7.4-10.4) 01/27/23 10:15 Neut % (Auto) 72.9 % 01/27/23 10:15 Lymph % (Auto) 16.2 % 01/27/23 10:15 [place] % (Auto) 9.1 % 01/27/23 10:15 Eos % (Auto) 0.7 % 01/27/23 10:15 Baso % (Auto) 0.6 % 01/27/23 10:15 Neut # (Auto) 6.41 10^3/uL (1.8-7.7) 01/27/23 10:15 Lymph # (Auto) 1.4 10^3/uL (0.8-4.8) 01/27/23 10:15 [place] # (Auto) 0.8 10^3/uL (0.2-0.9) 01/27/23 10:15 Eos # (Auto) 0.1 10^3/uL (0.0-0.8) 01/27/23 10:15 Baso # (Auto) 0.1 10^3/uL (0.0-0.1) 01/27/23 10:15 Nucleated RBC % (auto) 0 % 01/27/23 10:15 Nucleated RBCs # 0.0 /100WBC 01/27/23 10:15 Sodium 147 mmol/L (136-145) H 01/27/23 10:15 Potassium 3.9 mmol/L (3.5-5.1) 01/27/23 10:15 Chloride 112 mmol/L (98-107) H 01/27/23 10:15 Carbon Dioxide 20 mmol/L (22-29) L 01/27/23 10:15 Anion Gap 18.9 (5-19) 01/27/23 10:15 BUN 38 mg/dL (8-23) H 01/27/23 10:15 Creatinine 1.0 mg/dL (0.7-1.2) 01/27/23 10:15 GFR Calculation Not Reportable 01/27/23 10:15 Glucose 148 mg/dL (65-115) H 01/27/23 10:15 Calculated Osmolality 316 mOsm/kg (285-295) H 01/27/23 10:15 Calcium 9.6 mg/dL (8.5-10.5) 01/27/23 10:15 Total Bilirubin 0.4 mg/dL (0.15-1.2) 01/27/23 10:15 AST 62 U/L (0-40) H 01/27/23 10:15 ALT 86 U/L (0-41) H 01/27/23 10:15 Alkaline Phosphatase 73 U/L (40-130) 01/27/23 10:15 Troponin T Baseline 326 ng/L (0-15) H* 01/27/23 10:15 Troponin T 120 Minute 322.3 ng/L (0-15) H 01/27/23 12:14 Delta Troponin T -3.7 ABS# (0-10) L 01/27/23 12:14 Troponin T Hi Sens 6Hr 416.0 ng/L (0-15) H 01/27/23 16:32 Troponin T Hi Sens 6Hr Delta 90.0 ng/L (0-12) H* 01/27/23 16:32 NT-Pro-B Natriuret Pep 46468 pg/mL (0-450) H 01/27/23 10:15 Total Protein 6.4 g/dL (6.6-8.7) L 01/27/23 10:15 Albumin 4.1 g/dL (3.5-5.2) 01/27/23 10:15 Globulin 2.3 g/dL (1.3-4.6) 01/27/23 10:15 TSH 2.85 uIU/mL (0.27-4.20) 01/27/23 14:15 Echo: My impression: Echocardiogram in August 2022 ?LV systolic function is moderately reduced with EF of 35 to 40%.? ?Moderate global hypokinesis is seen. ?Grade 1 diastolic dysfunction ?Left atrial dilation ?Mild mitral regurgitation ?Bioprosthetic aortic valve is seen.? Aortic valve area is 1.32 ?cm.? Mildly increased gradient across aortic valve with mean ?gradient of 15 mmHg.? DVI is 0.42.? Normally functioning aortic ?valve. ?Mild tricuspid regurgitation.? Mild pulmonary hypertension ?Mild pulmonic regurgitation ?Compared to prior echocardiogram from 2020, and now has mild ?pulmonary hypertension. Echocardiogram in 2020 ?1-Mildly increased left ventricular cavity size. Moderately ?decreased left ventricular systolic function. Left ventricular ?ejection fraction is estimated at 40 %. Global left ventricular ?hypokinesis. Grade I/IV diastolic dysfunction (abnormal ?relaxation filling pattern), normal to mildly elevated filling ?pressures. ?2-Moderately increased left atrial size. ?3-Bioprosthetic aortic valve sitting in normal position without ?significant valvular or paravalvular leak ?4-Trace tricuspid valve regurgitation. ?5-Right atrial pressure is around 5 mm of mercury. ?6-When compared to the prior echocardiogram dated 05 February 2019 ?there is no significant difference EKG 1: My Interpretation: Multifocal atrial rhythm. Diffuse nonspecific T wave changes. Poor R wave progression. Voltage irregular for LVH. Occasional PVCs A&P Assessment and plan (1) Acute on chronic systolic heart failure: The etiology of the heart failure is not clear. Most likely he may have had an ischemic event causing the heart failure. He will be carefully treated with IV diuretics and other symptomatic measures (2) Myocardial injury: Patient is a clinical features may suggest a non-ST elevation myocardial infarction. He may be treated with subcu Lovenox, Plavix, heparin, aspirin, and other symptomatic measures. (3) Aortic valve replaced: The patient has a tissue valve in the aortic position. Currently the function seems to be appropriate. (4) S/P ascending aortic aneurysm repair: Aortic root is slightly dilated at 4.6 cm. He may not require any specific intervention at this point (5) History of hypertension: Will optimize antihypertensive medications. (6) Hx of cardiomyopathy: Patient may benefit from Entresto for the long-term management. Once the heart failure is properly treated, may be started on this medication. (7) A-fib: Patient seems to have intermittent atrial fibrillation. He has episodes of multifocal atrial rhythm/tachycardia. He will be closely monitored on telemetry. Plan Other problems are Elevated BUN Mild anemia Bilateral blindness Based on your progress, further recommendations will be made. He may benefit from a cardiac catheterization, to further evaluate his coronary status as well as the graft status. Thank for the opportunity to evaluate this patient make these recommendations Consult Attestations Medical Necessity Statement: Patient requires continued hospital stay for close monitoring and further management Coding Level of Care Code 31326 Diagnoses Acute on chronic systolic heart failure I50.23 Myocardial injury I5A Aortic valve replaced Z95.2 S/P ascending aortic aneurysm repair Z98.890; Z86.79 History of hypertension Z86.79 Hx of cardiomyopathy Z86.79 A-fib I48.91
[2023-01-27] MEDS: morphine IR 15 mg Tablet PO (21:22)
[2023-01-27] MEDS: metoprolol tartrate 25 mg Tablet PO (21:22)
--- NOTE | 2023-01-27 22:25 | PC.NURSE ---
Spoke with regarding patients complaints of urinary pain and leaking around the rangel. Nurse irrigated and repositioned rangel and gave patient PRN PO pain medication with little relief for the patient. ordered one time dose of IV Morphine.
[2023-01-27] MEDS: morphine 4 mg/mL SDV 1 mL 2 MG IVP (22:55)
[2023-01-27] MEDS: nitroglycerin drip 50 MG/250 ML PREMIX IV (23:01)
[2023-01-28] VITALS (69 sets, daily range): BP systolic 83–149; BP diastolic 59–122; PULSE 55–127; RESP 4–31; TEMP 36.3–37.1; O2SAT 73–98
[2023-01-28] MEDS: FUROsemide 10 mg/mL SDV 10mL 60 MG IVP ×2 (03:32→17:18)
[2023-01-28] MEDS: enoxaparin 80 mg/0.8 mL Syringe 70 MG SUBCUT (03:35)
[2023-01-28 03:39] LABS: Basophils % 0.3 %; Hematocrit 36.6 % (42.0-52.0); Hemoglobin 11.1 g/dL (11.7-16.6); Lymphocytes # 0.6 10^3/uL (0.8-4.8); Lymphocytes % 5.3 %; Mean Corpuscular HGB Conc 30.3 g/dL (30.0-36.0); Mean Corpuscular Volume 82.4 fl (80-94); Mean Platelet Volume 11.3 fL (7.4-10.4); Monocytes # 0.5 10^3/uL (0.2-0.9); Monocytes % 3.8 %; Neutrophils # 10.82 10^3/uL (1.8-7.7); Neutrophils % 90.3 %; Nucleated Red Blood Cells % 0 %; Platelet Count 225 10^3/cmm (130-400); Red Blood Count 4.44 10^6/uL (4.1-5.3); Red Cell Distribution Width 16.3 % (12.1-15.1)
[2023-01-28 03:59] LABS: Anion Gap 20.4 (5-19); Blood Urea Nitrogen 31 mg/dL (8-23); C Reactive Protein 10.1 mg/L (0.0-4.9); Calcium 9.3 mg/dL (8.5-10.5); Carbon Dioxide 21 mmol/L (22-29); Chloride 108 mmol/L (98-107); Glucose 213 mg/dL (65-115); Magnesium 2.1 mg/dL (1.7-2.3); Osmolality Calculated 315 mOsm/kg (285-295); Potassium 3.4 mmol/L (3.5-5.1); Sodium 146 mmol/L (136-145)
--- NOTE | 2023-01-28 09:06 | PM.PN ---
Subjective Subjective: No chest pain. He had hematuria. Plan for cath postponed. Also has urinary retention. Vitals/I&O/Wt Last Vital Signs Temp 97.4 F L 01/28/23 05:00 Pulse 127 H 01/28/23 07:30 Resp 30 H 01/28/23 07:30 BP 109/87 01/28/23 07:30 Pulse Ox 93 01/28/23 07:30 O2 Del Method 01/28/23 07:29 O2 Flow Rate 3 01/28/23 07:29 01/27/23 01/28/23 01/28/23 22:59 06:59 14:59 Intake Total 620 / 620 200 / 820 Output Total 2425 / 2425 800 / 3225 Balance -1805 / -1805 -600 / -2405 Weight last 48 hrs Weight 135 lb 4.8 oz Weight 149 lb 6 oz Weight 149 lb Physical Exam Narrative: GENERAL: Patient is alert, awake and oriented x3. [] NECK: No jugular vein distension. [] HEENT: No cyanosis. No icterus. No pallor. [] HEART: Regular S1 and S2. No murmur, rub or gallop. [] LUNGS: Clear to auscultate bilaterally. [] CENTRAL NERVOUS SYSTEM: Grossly nonfocal. [] EXTREMITIES: Lower extremities with 1+ edema bilaterally. Pulses palpable in the lower extremities, both dorsalis pedis and posterior tibial. [] Urinary Catheter Management: Andres: Cath Placed During This Visit: yes Reason for Continuing Indwelling Catheter: Acute Urinary Retention or Obstruction Urinary Catheter Date of Insertion: 01/27/23 Urinary Catheter Time of Insertion: 15:50 Data 01/28/23 02:57 01/28/23 02:57 A&P Assessment and plan (1) Acute on chronic systolic heart failure: Ischemic etiology vs atrial fibrillation possible etiologies of heart failure. He will need coronary angiogram once hematuria resolves and renal function is stable. (2) Myocardial injury: On NSTEMI treatment. (3) Aortic valve replaced: The patient has a tissue valve in the aortic position. Currently the function seems to be appropriate. (4) S/P ascending aortic aneurysm repair: Aortic root is 4.6 cm (5) History of hypertension: Blood pressure is stable. (6) Hx of cardiomyopathy: Can be started on outpatient enteresto. (7) A-fib: Patient seems to have intermittent atrial fibrillation. He has episodes of multifocal atrial rhythm/tachycardia. He will be closely monitored on telemetry. Plan Other problems are Elevated BUN Mild anemia Bilateral blindness We will hold off on cardiac cath today and once hematuria resolves, will proceed with it. Attestations Medical Necessity Statement*: Care expected to cross 2 midnights. Coding Level of Care Code Acute Code for Chg Fwd Diagnoses Acute on chronic systolic heart failure I50.23 Myocardial injury I5A Aortic valve replaced Z95.2 S/P ascending aortic aneurysm repair Z98.890; Z86.79 History of hypertension Z86.79 Hx of cardiomyopathy Z86.79 A-fib I48.91
[2023-01-28] MEDS: aspirin 81 mg EC Tablet PO (09:42)
[2023-01-28] MEDS: clopidogrel 75 mg Tablet PO (09:42)
[2023-01-28] MEDS: atorvastatin 40 mg Tablet 80 MG PO (09:42)
[2023-01-28] MEDS: metoprolol tartrate 25 mg Tablet PO (09:42)
--- NOTE | 2023-01-28 10:52 | PC.CHAP ---
Pastoral Care Encounter/Spiritual Assessment Type of Contact [] Declined oil expeller operator visit [] Patient/Family/Request visit [] Outpatient visit [] Follow-up visit [] Physician referral [] Code/Alert [x] Routine visit [] Staff referral [] Actively dying [] Patient sleeping [x] Family support [] [] Out of room [] Palliative care [] [] Receiving care in room [] Pre-surgical visit [] Trauma [] Long length of stay [] ICU visit [] Other: Relational/Emotional Strength [x] Patient feels connected with others/family/visitors/staff [] Distress [] Loneliness/isolation [] Abandonment Spirituality of Patient [x] Person of Nadia [] Attends Confucianist of their Nadia [x] Believes in Prayer [] Reads Bible or Christianity materials [] There are Spiritual issues to be addressed Siding Mechanic Interventions [x] Prayer [] Active listening [] Non-anxious presence [] Spiritual/emotional support [] Crisis/trauma care [] Spiritual counseling [] Bereavement support [] Provided bereavement packet [] Provided Bible/devotional materials [] Provided toy/stuffed animal, coloring book to patient or family member [] Provided Communion [] Anointing/[place] [] Salvation [x] Completed spiritual assessment [] Other: Impact on Illness or Injury [] Angry [] Fearful [] Anxious [] Often cries [] Exhaustion [] Unable to work [] Unable to attend presybeterian [] Unable to walk/stand [] Unable to read [] Unable to drive [] Unable to eat/drink [] Unable to sleep [] Unable to be with family [] Patient intubated [] Other: Summary Time spent with patient 15min
--- NOTE | 2023-01-28 13:36 | P.PN_ITS ---
Subjective Subjective: Patient has urinary retention this morning. He does have a Andres catheter in place, however it is not draining. About 200 cc of urine is noted in the bag which is blood-tinged. However he is currently retaining more than 690 mL of urine. Complains of abdominal pain. There is also noted to be blood at the penile urethra. Attempts have been made to advance the catheter and flush, however it is not yet draining. We are making arrangements to replace the Andres with a larger 18 [place] with coud?. Cardiac cath on hold until we can assess for the extent of hematuria. Currently on nitro drip at 5 Medications: Reviewed: Yes Vitals/I&O/Wt Last Vital Signs Temp 97.4 F L 01/28/23 05:00 Pulse 86 01/28/23 10:30 Resp 17 01/28/23 10:30 BP 111/74 01/28/23 10:30 Pulse Ox 94 01/28/23 10:30 O2 Del Method 01/28/23 07:29 O2 Flow Rate 3 01/28/23 07:29 01/27/23 01/28/23 01/28/23 22:59 06:59 14:59 Intake Total 620 / 620 200 / 820 240 / 240 Output Total 2425 / 2425 800 / 3225 Balance -1805 / -1805 -600 / -2405 240 / 240 Weight last 48 hrs Weight 61.371 kg Weight 67.755 kg Weight 67.585 kg Physical Exam Narrative: General: In moderate distress secondary to pain and urinary retention. Very uncomfortable in his abdomen. Bladder is palpable HEENT: PERRLA, pupils bilaterally equal and reactive, pallors not present Chest: Normal vesicular breath sounds, no added sounds, equal good air entry bilaterally CVS: S1-S2 regular, no murmurs, no tachycardia, no gallops, no rubs Abdomen: Palpable bladder in the suprapubic area going well above the umbilicus Neuro: No focal deficits, no facial deformity, AO x3, power 5/5 in all limbs Urinary Catheter Management: Andres: Cath Placed During This Visit: yes Reason for Continuing Indwelling Catheter: Acute Urinary Retention or Obstruction Urinary Catheter Date of Insertion: 01/27/23 Urinary Catheter Time of Insertion: 15:50 Data 01/28/23 02:57 01/28/23 02:57 A&P Assessment and plan (1) Congestive heart failure: (2) Myocardial injury: (3) Hx of CABG: (4) Aortic valve replaced: (5) History of hypertension: (6) A-fib: (7) NSTEMI (non-ST elevated myocardial infarction): Plan Patient with a past medical history of coronary artery disease, status post CABG, ascending aortic aneurysm repair currently admitted for worsening shortness of breath over the past week. #Acute on chronic systolic heart failure Etiology is currently under investigation. May be related to underlying ischemic event, plan for cardiac cath today, however plan is currently on hold until assessment can be made for extent of hematuria. Echocardiogram shows severe diffuse hypokinesia of the septum, anteroseptum and LV apex. LVEF of 30 to 35%. Thickened mitral valve. Patient is currently on nitroglycerin drip and also receiving diuresis with Lasix 60 mg IV every 12 hours. Urine output is not adequately charted as patient has urinary retention in spite of a Andres in place. #NSTEMI Appreciate cardiology recommendations. Elevated troponins and clinical features concerning for NSTEMI. He is currently on aspirin 81 mg p.o. daily, Plavix 75 mg p.o. daily and anticoagulation with full dose Lovenox. We will hold the Lovenox for now given noted bleeding at the penile urethra. Andres is being replaced to assess the extent of hematuria. If urine starts to clear up without massive hematuria will likely resume anticoagulation. At home patient usually takes Eliquis which is currently on hold pending the cardiac cath. #Acute urinary retention Andres is likely not in the correct position. Bleeding noted. Attempts being made to replace Andres with 18 [place] coud? Unfortunately urology is not on-call until Tuesday (today is Tuesday) #History of aortic valve replacement #Status post ascending aortic aneurysm repair #Intermittent atrial fibrillation, currently rate controlled. He has episodes o f multifocal ache atrial tachycardia, continue monitoring on telemetry. Full code Cardiac diet Patient is legally blind DVT prophylaxis: With therapeutic Lovenox Attestations Medical Necessity Statement*: Hematuria, urinary retention needs further assessment and management, pending cardiac cath Coding Level of Care Code Acute Code for [facility] Diagnoses Congestive heart failure I50.9 Myocardial injury I5A Hx of CABG Z95.1 Aortic valve replaced Z95.2 History of hypertension Z86.79 A-fib I48.91 NSTEMI (non-ST elevated myocardial infarction) I21.4
[2023-01-28] MEDS: lidocaine 2% Urojet 20 mL TOPICAL (17:19)
[2023-01-29] VITALS (13 sets, daily range): BP systolic 95–129; BP diastolic 58–90; PULSE 43–87; RESP 1–31; TEMP 36.2–37.2; O2SAT 88–98
[2023-01-29] MEDS: metoprolol tartrate 25 mg Tablet PO ×2 (00:17→09:14)
--- NOTE | 2023-01-29 04:05 | PC.NURSE ---
Made Dr Gonzalez aware that patient had not labs ordered for the morning and patient has been having hematuria and had low potassium yesterday and is on IV lasix. Dr Gonzalez ordered CBC and BMP.
[2023-01-29] MEDS: FUROsemide 10 mg/mL SDV 10mL 60 MG IVP (04:40)
[2023-01-29 05:13] LABS: Basophils % 0.3 %; Eosinophils % 0.4 %; Hematocrit 34.5 % (42.0-52.0); Hemoglobin 10.4 g/dL (11.7-16.6); Lymphocytes # 1.3 10^3/uL (0.8-4.8); Lymphocytes % 11.7 %; Mean Corpuscular HGB Conc 30.1 g/dL (30.0-36.0); Mean Corpuscular Hemoglobin 25.2 pg (28.0-34.0); Mean Corpuscular Volume 83.7 fl (80-94); Mean Platelet Volume 11.4 fL (7.4-10.4); Monocytes # 1.1 10^3/uL (0.2-0.9); Monocytes % 9.9 %; Neutrophils # 8.56 10^3/uL (1.8-7.7); Neutrophils % 77.2 %; Nucleated Red Blood Cells % 0 %; Platelet Count 208 10^3/cmm (130-400); Red Blood Count 4.12 10^6/uL (4.1-5.3); Red Cell Distribution Width 16.2 % (12.1-15.1); White Blood Count 11.1 10^3/uL (4.0-10.0)
[2023-01-29 05:29] LABS: Anion Gap 17.5 (5-19); Blood Urea Nitrogen 44 mg/dL (8-23); Carbon Dioxide 22 mmol/L (22-29); Chloride 107 mmol/L (98-107); Glucose 156 mg/dL (65-115); Osmolality Calculated 310 mOsm/kg (285-295); Potassium 3.5 mmol/L (3.5-5.1); Sodium 143 mmol/L (136-145)
--- NOTE | 2023-01-29 06:30 | PC.NURSE ---
Patients urinary catheter irrigated every 2 hours, after midnight no further clots noted. At 6am urine is yellow and clear. No further bloody drainage around the rangel, only a scant amount of pink drainage on pad.
--- NOTE | 2023-01-29 07:26 | PM.PN ---
Subjective Subjective: Patient is chest pain free. Had urinary retention yesterday. and developed JHONATHAN secondary to that. Vitals/I&O/Wt Last Vital Signs Temp 97.6 F 01/29/23 04:00 Pulse 76 01/29/23 04:00 Resp 23 H 01/29/23 04:00 BP 95/72 01/29/23 04:00 Pulse Ox 93 01/29/23 04:00 O2 Del Method 01/29/23 00:00 O2 Flow Rate 3 01/28/23 21:15 01/28/23 01/29/23 01/29/23 22:59 06:59 14:59 Intake Total 34.7 / 274.7 0 / 274.7 Output Total 575 / 1775 1000 / 2775 Balance -540.3 / -1500.3 -1000 / -2500.3 Weight last 48 hrs Weight 138 lb 3.2 oz Weight 135 lb 4.8 oz Weight 149 lb 6 oz Weight 149 lb Physical Exam Narrative: GENERAL: Patient is alert, awake and oriented x3. [] NECK: No jugular vein distension. [] HEENT: No cyanosis. No icterus. No pallor. [] HEART: Regular S1 and S2. No murmur, rub or gallop. [] LUNGS: Clear to auscultate bilaterally. [] CENTRAL NERVOUS SYSTEM: Grossly nonfocal. [] EXTREMITIES: Lower extremities with 1+ edema bilaterally. Pulses palpable in the lower extremities, both dorsalis pedis and posterior tibial. [] Urinary Catheter Management: Andres: Cath Placed During This Visit: yes, but has since been removed by the nurse Reason for Continuing Indwelling Catheter: Accurate Measurement of Urinary Output in Critically Ill Patients Urinary Catheter Date of Insertion: 01/28/23 Urinary Catheter Time of Insertion: 18:17 Date Urinary Catheter Removed: 01/28/23 Time Urinary Catheter Discontinued: 18:15 Coude: Cath Placed During This Visit: no Reason for Continuing Indwelling Catheter: Accurate Measurement of Urinary Output in Critically Ill Patients Data 01/29/23 05:08 01/29/23 05:08 A&P Assessment and plan (1) Acute on chronic systolic heart failure: Ischemic etiology vs atrial fibrillation possible etiologies of heart failure. Coronary angiogram postponed today because of JHONATHAN. If renal function improves by tomorrow, we will proceed with coronary angiogram tomorrow. Hold diuretics for now. (2) Myocardial injury: On NSTEMI treatment. (3) Aortic valve replaced: The patient has a tissue valve in the aortic position. Currently the function seems to be appropriate. (4) S/P ascending aortic aneurysm repair: Aortic root is 4.6 cm (5) History of hypertension: Blood pressure is stable. (6) Hx of cardiomyopathy: Can be started on outpatient enteresto. (7) A-fib: Patient seems to have intermittent atrial fibrillation. He has episodes of multifocal atrial rhythm/tachycardia. He will be closely monitored on telemetry. Plan Other problems are Elevated BUN Mild anemia Bilateral blindness No more hematuria, plan for coronary angiogram with possible PCI tomorrow if renal function improves. Holding diuretics Attestations Medical Necessity Statement*: Care expected to cross 2 midnights. Coding Level of Care Code Acute Code for [facility] Fwd Diagnoses Acute on chronic systolic heart failure I50.23 Myocardial injury I5A Aortic valve replaced Z95.2 S/P ascending aortic aneurysm repair Z98.890; Z86.79 History of hypertension Z86.79 Hx of cardiomyopathy Z86.79 A-fib I48.91
[2023-01-29] MEDS: aspirin 81 mg EC Tablet PO (09:13)
[2023-01-29] MEDS: atorvastatin 40 mg Tablet 80 MG PO (09:13)
[2023-01-29] MEDS: clopidogrel 75 mg Tablet PO (09:14)
--- NOTE | 2023-01-29 10:20 | P.PN_ITS ---
Subjective Subjective: Noted to be veryHis urine is starting to clear up today after insertion of a new Andres catheter. Hemoglobin at 10.4. Cardiac with heart rate ranging between 43-54. Nitro drip was turned off overnight due to development of hypotension with systolic blood pressure in the 90s. Creatinine has bumped up to 1.6, cardiac cath deferred for today. Medications: Reviewed: Yes Vitals/I&O/Wt Last Vital Signs Temp 98.4 F 01/29/23 08:30 Pulse 54 L 01/29/23 08:30 Resp 16 01/29/23 08:00 BP 113/76 01/29/23 08:30 Pulse Ox 95 01/29/23 08:30 O2 Del Method 01/29/23 08:00 O2 Flow Rate 2 01/29/23 08:00 01/28/23 01/29/23 01/29/23 22:59 06:59 14:59 Intake Total 34.7 / 274.7 0 / 274.7 Output Total 575 / 1775 1000 / 2775 Balance -540.3 / -1500.3 -1000 / -2500.3 Weight last 48 hrs Weight 62.686 kg Weight 61.371 kg Weight 67.755 kg Physical Exam Narrative: General: No acute distress, AO x3 HEENT: PERRLA, pupils bilaterally equal and reactive, pallors not present Chest: Normal vesicular breath sounds, no added sounds, equal good air entry bilaterally CVS: S1-S2 regular, no murmurs, no tachycardia, no gallops, no rubs Abdomen: Soft, nontender, no organomegaly, bowel sounds present Neuro: No focal deficits, no facial deformity, AO x3, power 5/5 in all limbs Urinary Catheter Management: Andres: Cath Placed During This Visit: yes, but has since been removed by the nurse Reason for Continuing Indwelling Catheter: Accurate Measurement of Urinary Output in Critically Ill Patients Urinary Catheter Date of Insertion: 01/28/23 Urinary Catheter Time of Insertion: 18:17 Date Urinary Catheter Removed: 01/28/23 Time Urinary Catheter Discontinued: 18:15 Coude: Cath Placed During This Visit: yes Reason for Continuing Indwelling Catheter: Accurate Measurement of Urinary Output in Critically Ill Patients Urinary Catheter Date of Insertion: 01/28/23 Data 01/29/23 05:08 01/29/23 05:08 A&P Assessment and plan (1) Congestive heart failure: (2) Myocardial injury: (3) Hx of CABG: (4) Aortic valve replaced: (5) History of hypertension: (6) A-fib: (7) NSTEMI (non-ST elevated myocardial infarction): (8) Acute kidney injury: Plan Patient with a past medical history of coronary artery disease, status post CABG, ascending aortic aneurysm repair currently admitted for worsening shortness of breath over the past week. #Acute on chronic systolic heart failure Etiology is currently under investigation. May be related to underlying ischemic event, plan for cardiac cath on January 28, however needed to be deferred because of acute urinary retention. Cardiac cath again deferred for today due to interim development of JHONATHAN, likely as a result of urinary retention yesterday. Echocardiogram shows severe diffuse hypokinesia of the septum, anteroseptum and LV apex. LVEF of 30 to 35%. Thickened mitral valve. Diuresis placed on hold today due to acute kidney injury. Nitroglycerin infusion held overnight due to soft blood pressure. Urine output 2.7 L since reinsertion of Andres catheter at around 4 PM yesterday #NSTEMI Appreciate cardiology recommendations. Elevated troponins and clinical features concerning for NSTEMI. He is currently on aspirin 81 mg p.o. daily, Plavix 75 mg p.o. daily and antic oagulation with full dose Lovenox. Resume Lovenox now that hematuria started to clear. Closely monitor for any re bleeding At home patient usually takes Eliquis which is currently on hold pending the cardiac cath. #Acute kidney injury Creatinine trended up to 1.6, likely as a result of acute urinary retention for over 12 hours, likely due to misplaced Andres. Noted to have bleeding at the penile urethra yesterday. Andres has eventually been changed out with an 18 Macedonian coud? catheter following which patient put out about 1 L urine. His abdominal exam is benign today Hold valsartan due to JHONATHAN. Lasix has been placed on hold today Holding off on cardiac cath until kidney function starts to recover. #Acute urinary retention Now resolved. #History of aortic valve replacement #Status post ascending aortic aneurysm repair #Intermittent atrial fibrillation, currently rate controlled. He has episodes of multifocal ache atrial tachycardia, continue monitoring on telemetry. Full code Cardiac diet Patient is legally blind DVT prophylaxis: With therapeutic Lovenox Attestations Medical Necessity Statement*: [facility], pending cardiac cath Coding Level of Care Code Acute Code for Chg Fwd High MDM includes number and complexity of problems actively addressed during encounter, amount and/or complexity of data reviewed/ordered and described risk of complication, morbidity or mortality of management as documented Diagnoses Congestive heart failure I50.9 Myocardial injury I5A Hx of CABG Z95.1 Aortic valve replaced Z95.2 History of hypertension Z86.79 A-fib I48.91 NSTEMI (non-ST elevated myocardial infarction) I21.4 Acute kidney injury N17.9
[2023-01-29] MEDS: enoxaparin 60 mg/0.6 mL Syringe SUBCUT (12:37)
[2023-01-29 18:23] LABS: Anion Gap 19.5 (5-19); Blood Urea Nitrogen 61 mg/dL (8-23); Calcium 8.8 mg/dL (8.5-10.5); Carbon Dioxide 22 mmol/L (22-29); Chloride 104 mmol/L (98-107); Glucose 229 mg/dL (65-115); Osmolality Calculated 319 mOsm/kg (285-295); Potassium 3.5 mmol/L (3.5-5.1); Sodium 142 mmol/L (136-145)
[2023-01-30] VITALS (43 sets, daily range): BP systolic 88–132; BP diastolic 60–100; PULSE 56–89; RESP 3–32; TEMP 36.5–37.3; O2SAT 85–99
[2023-01-30 05:03] LABS: Basophils % 0.4 %; Eosinophils # 0.2 10^3/uL (0.0-0.8); Eosinophils % 1.9 %; Hematocrit 34.5 % (42.0-52.0); Hemoglobin 10.5 g/dL (11.7-16.6); Lymphocytes # 1.4 10^3/uL (0.8-4.8); Lymphocytes % 14.8 %; Mean Corpuscular HGB Conc 30.4 g/dL (30.0-36.0); Mean Corpuscular Hemoglobin 25.1 pg (28.0-34.0); Mean Corpuscular Volume 82.5 fl (80-94); Mean Platelet Volume 11.1 fL (7.4-10.4); Monocytes # 0.9 10^3/uL (0.2-0.9); Monocytes % 10.2 %; Neutrophils # 6.59 10^3/uL (1.8-7.7); Neutrophils % 72.5 %; Nucleated Red Blood Cells % 0 %; Platelet Count 210 10^3/cmm (130-400); Red Blood Count 4.18 10^6/uL (4.1-5.3); Red Cell Distribution Width 16.1 % (12.1-15.1); White Blood Count 9.1 10^3/uL (4.0-10.0)
[2023-01-30 05:26] LABS: Alanine Aminotransferase 35 U/L (0-41); Albumin Level 3.5 g/dL (3.5-5.2); Alkaline Phosphatase 53 U/L (40-130); Aspartate Amino Transferase 15 U/L (0-40); Blood Urea Nitrogen 50 mg/dL (8-23); Calcium 8.5 mg/dL (8.5-10.5); Carbon Dioxide 25 mmol/L (22-29); Chloride 108 mmol/L (98-107); Globulin 2.3 g/dL (1.3-4.6); Glucose 147 mg/dL (65-115); Osmolality Calculated 316 mOsm/kg (285-295); Sodium 145 mmol/L (136-145); Total Bilirubin 0.4 mg/dL (0.15-1.2); Total Protein 5.8 g/dL (6.6-8.7)
[2023-01-30] MEDS: aspirin 81 mg EC Tablet PO (08:05)
[2023-01-30] MEDS: clopidogrel 75 mg Tablet PO (08:05)
[2023-01-30] MEDS: atorvastatin 40 mg Tablet 80 MG PO (08:05)
--- NOTE | 2023-01-30 08:47 | XACV_ITS ---
Exam Room: [facility] Ht: 163 cm Wt: 63 kg BSA: 1.69 m2 Gender: Male : 1940 Any Known Allergies: Penicillins Exam Priority: Routine Procedure(s): Procedure Description: Diagnostic procedure Procedure Description: Venous Graft Catheterization Procedure Description: CABRERA Graft Catheterization Procedure Description: Miscellaneous Procedure Description: ACT Procedure Description: Coronary Angiography Diagnostic Cath Status: Urgent Diagnostic Findings * Severe * multivessel hamilton coronary artery disease * . * Left main artery: Patent. * Left circumflex artery: Proximally occluded. * Ramus intermedius: It is a large sized vessel. It is patent. * LAD: Proximally occluded. * RCA: Has diffuse moderate disease. Proximally has about 60 to 70% stenosis. SVG graft to PDA is patent. PDA gives of collaterals to the LAD. * Bypass grafts SVG to RCA: * Ectatic * , patent SVG to OM: Patent CABRERA to LAD: It is atretic and supplying minimal area. * Coronary angiography shows right dominance. Conclusions 1. Severe 2. multivessel hamilton coronary artery disease 3. . 4. SVG to OM, SVG to RCA and hamilton ramus artery are patent. 5. CABRERA to LAD is atretic and supplying only minimal area of LAD. 6. RCA is a large sized vessel and is supplying strong collaterals to the LAD territory. 7. Patient has prior CABG. Recommendations * Aggressive risk factor modification. * Outpatient cardiology follow-up in 4-week. Interventional RX Recommendation: medical therapy and/or counseling Diagnostic RX Recommendation: medical therapy and/or counseling Anticoagulation: Heparin Pressures Phase:Rest AO : 103 / 74 ( 87 ) @ 9:47:00 AM 94 / 61 ( 74 ) @ 9:48:00 AM Clinical Evaluation EBL: 5mL-10mL Procedural Details Procedure Consent Obtained. Pre-Procedure Time Out. Identified patient by full name and date of as verbalized by the patient/guarantor. Does the consent match the physician's order: Yes. Accurate & Complete Informed Consent: Yes. Inpatient/Outpatient History & Physical on Chart: Yes. If H&P is completed, is and addenduem needed: No; If yes, is the addendum complete: N/A. Visualize and Verify Site with Patient/Guarantor: N/A. Relevant Radiology Images available: Yes. Pre-op teaching completed and patient verbalized understanding. The risks, benefits, and alternatives of sedation and/or procedure were discussed by physician. The patient agrees to continue. Current Diagnosis : Chest Pain. [facility] Clinical Fraility Score: 4: Vulnerable. Tobacco Cutter Indications: ACS > 24 hours. Chest Pain Symptom Assessment: Atypical Angina. Correct patient, site and procedure confirmed by cath team. Current diagnosis: NSTEMI. PERRLA. Strong, equal hand still runner bilaterally. Lungs clear x 5 lobes. IV Site on Arrival: 20 gauge in the left forearm. Pre Procedural Pulses: bilateral dorsalis pedis was 3+. Pre Procedural Pulses: bilateral posterior tibial was 3+. Oxygen started at 2liters/min via nasal canula. bilateral groins was prepped with chloroprep then draped in the usual sterile fashion. Physician arrived. Procedure started. IV Fluids: 0.9% NaCl at KVO. 0 mL infused prior to laborer stores. Baseline sample Acquired. HR: 78 BPM. Physician scrubbed in. Immediate Pre-Procedure Time Out. Correct Patient: Yes; Correct Procedure: Yes; Correct Site: Yes; Correct Patient Position: Yes; Correct Supplies: Yes; Dried Flammable Prep: Yes; Blood Products Available: N/A;. Lidocaine 1% infiltrated to the right groin. Arterial access obtained with micropuncture set. Contrast hand injected through the access needle. Wire inserted. Contrast hand injected through the access needle. Inventory is TR Glidewire Angled Stiff Shaft .035 260cm. The short 6Fr sheath was exchanged for a 45cm 6Fr Flexor sheath. A 5 peruvian JL4 catheter in over wire. Catheter removed over the standard wire. A 6 peruvian JL4 125cm catheter in over wire. Multiple views taken of left coronary artery. Catheter removed over the glide wire. A 6 peruvian JR4 125cm catheter in over the glidewire. Multiple views taken of right coronary artery. SVG's to RCA visualized and patent. Catheter removed over the glide wire. A 5 peruvian JR4 catheter in over wire. SVG's to OM visualized and patent. CABRERA to LAD visualized. Catheter removed over the glide wire. Physician review of cine films. The Flexor sheath exchanged for a short 6Fr sheath. A Right femoral angiogram was performed to determine safe placement of closure device. Sheath(s) sutured into position with 2-0 silk and sterile 4x4's and Op-site applied over the site. No oozing or signs and symptoms of hematoma noted. Arterial sheath flushed and connected to tranducer and pressure bag with heparinized saline. A Suture was successful obtaining hemostatsis at the Right Femoral artery insertion site. Post Procedure: Pulses reassessed and unchanged. PERRLA. Strong, equal hand still runner bilaterally. No VTE prophylaxis required. Medication's Wasted: Heparin = 2000 units. ACT drawn. Results 149 seconds. Therapeutic limits - pre-heparin administration 90-150 seconds and monitoring heparin during a vascular procedure >250 seconds. Medication's Wasted: Other = Fentanyl 50mcg Versed 1 mg. Total IV fluids: 45 mL. Complications: None. Estimated blood loss: 5mL-10mL. Airway - Unaffected, no intervention required; spontaneous ventilation. Circulation: W/N/L, pulses unchanged. Nausea/Vomiting: No. Procedure completed. Patient transferred by bed to 1st floor. Vital chart was stopped. Access Site Site: Right Femoral artery Sheath Size: 6 Fr Hemostasis Method: Suture Hemostasis Success: Successful Procedure Medications Start: 9:28 AM Stop: 9:28 AM Medication: Versed Amount: 1 mg Route: I.V. Start: 9:28 AM Stop: 9:28 AM Medication: Fentanyl Amount: 25 mcg Route: I.V. Start: 9:39 AM Stop: 9:39 AM Medication: Fentanyl Amount: 25 mcg Route: I.V. Start: 9:51 AM Stop: 9:51 AM Medication: Heparin Amount: 2000 units Route: I.V. I, the attending physician, have reviewed and verified all procedure medications. Yes, all medications given per verbal order History/Risk Factors Hypertension: No Dyslipidemia: No Peripheral Arterial Disease (PAD): No Myocardial Infarction (SD): No Obesity: No Renal Disease: No Tobacco Use: Never Prior Interventions PCI: Yes CABG: Yes Valve Surgery: Yes Date of PCI: 06/27/2013 Report Signatures Finalized by Sachin Mercer MD on 01/31/2023 01:34 PM
--- NOTE | 2023-01-30 09:23 | W.PM.OPSUD ---
Surgery/Procedure H&P Update DATE OF PROCEDURE: January 30, 2023 DATE H&P PERFORMED: 01/27/23 H&P UPDATE INFORMATION: I have reviewed H&P completed within last 30 days, I have examined patient prior to procedure and No changes to prior documentation PREOP DIAGNOSIS: NSTEMI/ LV dysfunction PRIMARY INDICATION FOR PROCEDURE: NSTEMI/ LV dysfunction PLANNED PROCEDURE: Left heart cath with possible percutaneous coronary intervention PATIENT REASSESSED PRIOR TO SEDATION, WITH NO CHANGE NOTED: Yes PHYSICAL EXAM: alert, oriented x 3, clear to auscultation bilaterally and regular rate & rhythm AIRWAY EVAL/ANESTHESIA PLAN: normal airway, ASA III, Local Anesthesia, Risks, benefits & alternatives of sedation and/or procedure discussed and Patient agrees to continue as planned ADDITIONAL INFORMATION: Moderate sedation
--- NOTE | 2023-01-30 10:29 | PC.SOCIAL ---
IMM Update pg 2 of IMM updated and reviewed w/ patient and his . Copy provided and copy dated, initialed and placed in chart.
--- NOTE | 2023-01-30 11:20 | PC.NURSE ---
received from cardiac drop crew laborer at 1025 via bed,into room 108.report received.pt is alert and awake.denies pain at present.sr with occas pac's on monitor.right groin with arterial femoral sheath in place,intact to pressurized system.drsg has small light red drng present.marked.no hematoma noted.right leg is warm to touch and with brisk capillary refill.palpable dp pulse noted.vss.pt and pt's spouse instructed in activity restrictions s/p femoral artery procedure..and instructed to notify staff for any bleeding,pain,sob,numbness..or for any concerns at all.pt and spouse verb understanding of instructions
[2023-01-30] MEDS: potassium chloride ER 20 mEq Tablet 60 MEQ PO (11:52)
--- NOTE | 2023-01-30 12:04 | P.PN_ITS ---
Subjective Subjective: s/p cardiac cath this morning, CABRERA atretic, RCA with collaterals to LAD, no stents. Medical therapy indicated. Hematuria has now cleared. Will discontinue full dose Lovenox and transition back to Eliquis. Medications: Reviewed: Yes Vitals/I&O/Wt Last Vital Signs Temp 98.8 F 01/30/23 04:00 Pulse 72 01/30/23 08:00 Resp 16 01/30/23 08:00 BP 101/81 01/30/23 04:00 Pulse Ox 93 01/30/23 08:00 O2 Del Method 01/30/23 08:00 O2 Flow Rate 2 01/29/23 08:00 01/29/23 01/30/23 01/30/23 22:59 06:59 14:59 Intake Total 0 / 240 Output Total 1100 / 1100 500 / 1600 Balance -1100 / -860 -500 / -1360 Weight last 48 hrs Weight 61.235 kg Weight 62.686 kg Physical Exam Narrative: General: No acute distress, AO x3 HEENT: PERRLA, pupils bilaterally equal and reactive, pallors not present Chest: Normal vesicular breath sounds, no added sounds, equal good air entry bilaterally CVS: S1-S2 regular, no murmurs, no tachycardia, no gallops, no rubs Abdomen: Soft, nontender, no organomegaly, bowel sounds present Neuro: No focal deficits, no facial deformity, AO x3, power 5/5 in all limbs Urinary Catheter Management: Andres: Cath Placed During This Visit: yes, but has since been removed by the nurse Reason for Continuing Indwelling Catheter: Accurate Measurement of Urinary Output in Critically Ill Patients Urinary Catheter Date of Insertion: 01/28/23 Urinary Catheter Time of Insertion: 18:17 Date Urinary Catheter Removed: 01/28/23 Time Urinary Catheter Discontinued: 18:15 Coude: Cath Placed During This Visit: yes Reason for Continuing Indwelling Catheter: Acute Urinary Retention or Obstruction Urinary Catheter Date of Insertion: 01/28/23 Data 01/30/23 03:55 01/30/23 03:55 A&P Assessment and plan (1) Congestive heart failure: (2) Myocardial injury: (3) Hx of CABG: (4) Aortic valve replaced: (5) History of hypertension: (6) A-fib: (7) NSTEMI (non-ST elevated myocardial infarction): (8) Acute kidney injury: Plan Patient with a past medical history of coronary artery disease, status post CABG, ascending aortic aneurysm repair currently admitted for worsening shortness of breath over the past week. #Acute on chronic systolic heart failure May be related to underlying ischemic event, s/p cardiac cath today with findin gs of CABRERA atretic, RCA with collaterals to LAD, no stents indicated. Plan for medical management continue ASA 81mg po daily, lipitor 80mg po daily Echocardiogram shows severe diffuse hypokinesia of the septum, anteroseptum and LV apex. LVEF of 30 to 35%. Thickened mitral valve. #NSTEMI Appreciate cardiology recommendations. Elevated troponins and clinical features concerning for NSTEMI. Cath as above ASA and eliquis , statins to continue #Acute kidney injury Creatinine trended up to 1.6 at peak, trending down now to 1.2, likely as a result of acute urinary retention for over 12 hours, likely due to misplaced Andres. Noted to have bleeding at the penile urethra. Andres has eventually been changed out with an 18 Armenian coud? catheter following which patient put out about 1 L urine. Hold valsartan due to JHONATHAN. Lasix has been placed on hold #Acute urinary retention Now resolved. hematuria resolved #History of aortic valve replacement #Status post ascending aortic aneurysm repair #Intermittent atrial fibrillation, currently rate controlled. He has episodes of multifocal ache atrial tachycardia, continue monitoring on telemetry. Full code Cardiac diet Patient is legally blind DVT prophylaxis: With therapeutic Lovenox Attestations Medical Necessity Statement*: Status post cardiac cath today, will need monitoring of creatinine, if JHONATHAN remains resolved over the next 24 hours we will plan to discharge home Coding Level of Care Code Acute Code for [facility] Diagnoses Congestive heart failure I50.9 Myocardial injury I5A Hx of CABG Z95.1 Aortic valve replaced Z95.2 History of hypertension Z86.79 A-fib I48.91 NSTEMI (non-ST elevated myocardial infarction) I21.4 Acute kidney injury N17.9
--- NOTE | 2023-01-30 13:18 | PM.PN ---
Subjective Subjective: Patient is doing well. Coronary angiogram was done yesterday. SVG to RCA and SVG to OM was patent. Large sized ramus artery is patent. CABRERA to LAD is atretic. Patient has collaterals from RCA to LAD. Vitals/I&O/Wt Last Vital Signs Temp 98.8 F 01/30/23 04:00 Pulse 78 01/30/23 12:00 Resp 20 H 01/30/23 12:00 BP 104/74 01/30/23 12:00 Pulse Ox 93 01/30/23 12:00 O2 Del Method 01/30/23 08:00 O2 Flow Rate 2 01/29/23 08:00 01/29/23 01/30/23 01/30/23 22:59 06:59 14:59 Intake Total 0 / 240 0 / 0 Output Total 1100 / 1100 500 / 1600 Balance -1100 / -860 -500 / -1360 0 / 0 Weight last 48 hrs Weight 135 lb Weight 138 lb 3.2 oz Physical Exam Narrative: GENERAL: Patient is alert, awake and oriented x3. [] NECK: No jugular vein distension. [] HEENT: No cyanosis. No icterus. No pallor. [] HEART: Regular S1 and S2. No murmur, rub or gallop. [] LUNGS: Clear to auscultate bilaterally. [] CENTRAL NERVOUS SYSTEM: Grossly nonfocal. [] EXTREMITIES: Lower extremities with 1+ edema bilaterally. Pulses palpable in the lower extremities, both dorsalis pedis and posterior tibial. [] Urinary Catheter Management: Andres: Cath Placed During This Visit: yes, but has since been removed by the nurse Reason for Continuing Indwelling Catheter: Accurate Measurement of Urinary Output in Critically Ill Patients Urinary Catheter Date of Insertion: 01/28/23 Urinary Catheter Time of Insertion: 18:17 Date Urinary Catheter Removed: 01/28/23 Time Urinary Catheter Discontinued: 18:15 Coude: Cath Placed During This Visit: yes Reason for Continuing Indwelling Catheter: Acute Urinary Retention or Obstruction Urinary Catheter Date of Insertion: 01/28/23 Data 01/30/23 03:55 01/30/23 03:55 A&P Assessment and plan (1) Acute on chronic systolic heart failure: Coronary angiogram performed showed patent SVG to RCA and SVG to OM. CABRERA is atretic, with LAD collaterals from RCA. Continue guideline directed heart failure therapy (2) Myocardial injury: Troponin elevation likely secondary to demand ischemia (3) Aortic valve replaced: The patient has a tissue valve in the aortic position. Currently the function seems to be appropriate. (4) S/P ascending aortic aneurysm repair: Aortic root is 4.6 cm (5) History of hypertension: Blood pressure is stable. (6) Hx of cardiomyopathy: Can be started on outpatient enteresto. (7) A-fib: Patient seems to have intermittent atrial fibrillation. He has episodes of multifocal atrial rhythm/tachycardia. He will be closely monitored on telemetry. Plan If renal function improves by tomorrow, patient will be stable to be discharged from cardiology standpoint. Attestations Medical Necessity Statement*: Care expected to cross 2 midnights. Coding Level of Care Code Acute Code for [facility] Diagnoses Acute on chronic systolic heart failure I50.23 Myocardial injury I5A Aortic valve replaced Z95.2 S/P ascending aortic aneurysm repair Z98.890; Z86.79 History of hypertension Z86.79 Hx of cardiomyopathy Z86.79 A-fib I48.91
[2023-01-30 13:24] LABS: Partial Thromboplastin Time 23.9 SECONDS (23.9-36.7)
--- NOTE | 2023-01-30 14:44 | PC.NURSE ---
right arterial femoral sheath pulled at 1350.manual pressure held x 23 min.vss.no hematoma formation.right leg remained warm to touch and with brisk capillary refill.palpable dp pulse noted.site dressed with 2x2 gauze and secured with biocclusive drsg.pt and spouse instructed in activity restrictions s/p arterial sheath pull,and instructed to notify staff for any bleeding,pain,numbness,cp,or for any concerns at all.they both verb understanding of instructions
[2023-01-30] MEDS: apixaban 5 mg Tablet 2.5 MG PO (17:57)
[2023-01-30] MEDS: metoprolol tartrate 25 mg Tablet PO (20:13)
[2023-01-30] MEDS: magnesium hydroxide 30 mL UDC PO (20:52)
[2023-01-31] VITALS (7 sets, daily range): BP systolic 107–117; BP diastolic 74–79; PULSE 66–79; RESP 18–24; TEMP 36.6–37.9; O2SAT 92–98
[2023-01-31 03:33] LABS: Bilirubin Urine Neg (Negative); Blood Urine 3+ (Negative); Glucose Urine UA Norm (Normal); Ketones Urine Negative (Negative); Leukocyte Esterase Urine Negative (Negative); Nitrate Urine Negative (Negative); Protein Urine 1+ (Negative); Specific Gravity, Urine 1.015 (1.005-1.030); Urine Appearance Hazy (CLEAR); Urine Color Yellow (Yellow); Urobilinogen Urine Neg (Negative); pH Urine 5 (5-7)
[2023-01-31 03:34] LABS: Add Urine Microscopic? YES
[2023-01-31 03:44] LABS: Bacteria Urine TRACE /hpf; Mucus Urine TRACE /hpf; RBC Urine >100 /hpf (0-2); Squamous Epithelial Cell Urine 0-4 /hpf (0-5)
[2023-01-31 03:47] LABS: Add Urine Culture? No; Uric Acid Crystals Urine >100 /hpf
[2023-01-31 05:11] LABS: Basophils % 0.3 %; Eosinophils # 0.1 10^3/uL (0.0-0.8); Eosinophils % 0.5 %; Hematocrit 35.1 % (42.0-52.0); Hemoglobin 10.5 g/dL (11.7-16.6); Lymphocytes # 0.7 10^3/uL (0.8-4.8); Lymphocytes % 6.2 %; Mean Corpuscular HGB Conc 29.9 g/dL (30.0-36.0); Mean Corpuscular Hemoglobin 25.1 pg (28.0-34.0); Mean Corpuscular Volume 83.8 fl (80-94); Mean Platelet Volume 10.7 fL (7.4-10.4); Monocytes # 1.1 10^3/uL (0.2-0.9); Monocytes % 9.3 %; Neutrophils # 9.67 10^3/uL (1.8-7.7); Neutrophils % 83.4 %; Nucleated Red Blood Cells % 0 %; Platelet Count 202 10^3/cmm (130-400); Red Blood Count 4.19 10^6/uL (4.1-5.3); Red Cell Distribution Width 16.2 % (12.1-15.1); White Blood Count 11.6 10^3/uL (4.0-10.0)
[2023-01-31 05:26] LABS: Alanine Aminotransferase 26 U/L (0-41); Albumin Level 3.6 g/dL (3.5-5.2); Alkaline Phosphatase 59 U/L (40-130); Anion Gap 13.9 (5-19); Aspartate Amino Transferase 12 U/L (0-40); Blood Urea Nitrogen 41 mg/dL (8-23); Calcium 8.7 mg/dL (8.5-10.5); Carbon Dioxide 22 mmol/L (22-29); Chloride 113 mmol/L (98-107); Globulin 2.2 g/dL (1.3-4.6); Glucose 161 mg/dL (65-115); Osmolality Calculated 314 mOsm/kg (285-295); Potassium 3.9 mmol/L (3.5-5.1); Sodium 145 mmol/L (136-145); Total Bilirubin 0.6 mg/dL (0.15-1.2); Total Protein 5.8 g/dL (6.6-8.7)
--- NOTE | 2023-01-31 06:00 | XRR_ITS ---
PROCEDURE INFORMATION: Exam: XR Chest Exam date and time: 01/31/2023 4:37 AM Age: 83 years old Clinical indication: Shortness of breath; Additional info: Evalute for atelactasis TECHNIQUE: Imaging protocol: Radiologic exam of the chest. Views: 1 view. COMPARISON: CR XR chest 1V portable [id number] 01/27/2023 9:22 AM FINDINGS: Tubes, catheters and devices: Partially assessed AAA endograft. Lungs: COPD. Hazy lung base opacities and effusions have improved. Edema has improved. Pleural spaces: No pneumothorax. Effusions have improved. Heart/Mediastinum: Heart remains very large. CABG. Heart valve replacement. Vasculature: Advanced diffuse vascular calcification noted. Improved venous congestion. Bones/joints: Unremarkable. XR/XR chest 1V portable [id number] IMPRESSION: Considerably improved exam from 4 days ago.
[2023-01-31] MEDS: metoprolol tartrate 25 mg Tablet PO (09:04)
[2023-01-31] MEDS: atorvastatin 40 mg Tablet 80 MG PO (09:04)
[2023-01-31] MEDS: aspirin 81 mg EC Tablet PO (09:04)
--- NOTE | 2023-01-31 10:50 | P.PN_ITS ---
Subjective Subjective: Patient is stable. No chest pain. Vitals/I&O/Wt Last Vital Signs Temp 97.9 F 01/31/23 07:56 Pulse 79 01/31/23 07:56 Resp 19 H 01/31/23 07:56 BP 107/79 01/31/23 07:56 Pulse Ox 92 01/31/23 07:56 O2 Del Method 01/31/23 07:56 O2 Flow Rate 2 01/30/23 19:52 01/30/23 01/31/23 01/31/23 22:59 06:59 14:59 Intake Total 760 / 1000 300 / 1300 240 / 240 Output Total 700 / 700 425 / 1125 Balance 60 / 300 -125 / 175 240 / 240 Weight last 48 hrs Weight 129 lb 14.4 oz Weight 135 lb Physical Exam Narrative: GENERAL: Patient is alert, awake and oriented x3. [] NECK: No jugular vein distension. [] HEENT: No cyanosis. No icterus. No pallor. [] HEART: Regular S1 and S2. No murmur, rub or gallop. [] LUNGS: Clear to auscultate bilaterally. [] CENTRAL NERVOUS SYSTEM: Grossly nonfocal. [] EXTREMITIES: Lower extremities with 1+ edema bilaterally. Pulses palpable in the lower extremities, both dorsalis pedis and posterior tibial. [] Urinary Catheter Management: Andres: Cath Placed During This Visit: yes, but has since been removed by the nurse Reason for Continuing Indwelling Catheter: Accurate Measurement of Urinary Output in Critically Ill Patients Urinary Catheter Date of Insertion: 01/28/23 Urinary Catheter Time of Insertion: 18:17 Date Urinary Catheter Removed: 01/28/23 Time Urinary Catheter Discontinued: 18:15 Coude: Cath Placed During This Visit: yes Reason for Continuing Indwelling Catheter: Other Urinary Catheter Date of Insertion: 01/28/23 Data 01/31/23 04:17 01/31/23 04:17 A&P Assessment and plan (1) Acute on chronic systolic heart failure: Coronary angiogram performed showed patent SVG to RCA and SVG to OM. CABRERA is atretic, with LAD collaterals from RCA. 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 Currently the function seems to be appropriate. (4) S/P ascending aortic aneurysm repair: Aortic root is 4.6 cm (5) History of hypertension: Blood pressure is stable. (6) Hx of cardiomyopathy: Can be started on outpatient enteresto. (7) A-fib: Stable Plan Patient wants to go home. He is stable. Can be discharged from cardiac standpoint Attestations Medical Necessity Statement*: Care expected to cross 2 midnights. Coding Level of Care Code Acute Code for [facility] Fwd Diagnoses Acute on chronic systolic heart failure I50.23 Myocardial injury I5A Aortic valve replaced Z95.2 S/P ascending aortic aneurysm repair Z98.890; Z86.79 History of hypertension Z86.79 Hx of cardiomyopathy Z86.79 A-fib I48.91
--- NOTE | 2023-01-31 11:30 | P.DS_ITS ---
Discharge Providers Date of Admission: 01/27/23 13:21 Date of Discharge: January 31, 2023 Attending Provider at Admission: Marvin Bautista MD Attending Provider at Discharge: Stefan Conn MD Primary Care Provider: Gómez Figueroa MD Diagnoses at Discharge Discharge Diagnosis (1) Acute on chronic systolic heart failure: Status: Acute (2) Myocardial injury: Status: Acute (3) Aortic valve replaced: Status: Acute (4) S/P ascending aortic aneurysm repair: Status: Acute (5) History of hypertension: Status: Acute (6) Hx of cardiomyopathy: Status: Acute (7) A-fib: Status: Acute Reason for Visit Reason for Visit: Henry sent for cardiac Hospital Course Hospital Course Tim Pack is a 83 year old male with a history of coronary artery disease, status post coronary bypass surgery, status post ascending aortic aneurysm repair, he is presenting with progressive shortness of breath for the last 4 days. This patient is known to have LV dysfunction.? The LV ejection fraction was around 30 to 35% by echocardiogram in August of last year.? He apparently has been in his baseline state of health up until the last Tuesday when he started having shortness of breath with activities.? The shortness of breath has been gradually getting worse.? He also has been having a dry cough and some swelling of the lower extremities.? No fever, chills.? No abdominal pain or dysuria.? No other associated symptoms. This patient had a PCI at the [facility] 10 years ago.? He underwent a three-vessel coronary bypass surgery in 2012 along with aortic aneurysm repair.? Apparently the aneurysm repair did not work well and he had to go for a redo surgery at the [facility] in [place] later on.? Since the redo surgery, he has been doing okay with no significant symptoms.? He has not had any chest pain.? Even before the bypass surgery, his main symptom was shortness of breath. He also is known to have atrial fibrillation and is on long-term oral anticoagulation.? He has a history of hematuria.? The dose of the Eliquis was cut back to 2.5 mg p.o. once a day. Patient will be the hospital further evaluation and management of non-ST elevation ID along with acute on chronic systolic heart failure. Access to started on full dose Lovenox for anticoagulation. Cardiology was consulted. Echocardiogram was done which is concerning for severe diffuse hypokinesia of septum, anteroseptum and LV apex along with a EF 30-35 %. Patient's hospitalization was complicated by him developing acute hematuria secondary to traumatic Andres catheterization which led to urinary retention for which Andres was replaced. The urinary retention also caused patient to have acute kidney injury. Lovenox was withheld. Eventually his hematuria had renal functions resolved. Eventually underwent cardiac angiogram on 01/30 which showed SVG to RCA and SVG to OM was patent. Large sized ramus artery is patent. CABRERA to LAD is atretic. Patient has collaterals from RCA to LAD. Patient hospitalization was otherwise unremarkable. He was advised medical treatment. His cardiac medications were further adjusted. He has been discharged hemodynamically stable condition with Andres in place with advised to follow-up with urology within next 1 week. He is to follow-up with Maggie Alexander from cardiology within next 1 week. Valsartan has been withheld. He is to take aspirin and Eliquis going forward. He is to finish a course of Levaquin once daily for next 7 days for possible UTI. Physical Exam Urinary Catheter Management: Andres: Cath Placed During This Visit: yes, but has since been removed by the nurse Reason for Continuing Indwelling Catheter: Accurate Measurement of Urinary Output in Critically Ill Patients Urinary Catheter Date of Insertion: 01/28/23 Urinary Catheter Time of Insertion: 18:17 Date Urinary Catheter Removed: 01/28/23 Time Urinary Catheter Discontinued: 18:15 Coude: Cath Placed During This Visit: yes Reason for Continuing Indwelling Catheter: Other Urinary Catheter Date of Insertion: 01/28/23 Discharge Data Studies Completed and Pending Completed Studies During Hospitalization Category Date Time Status CTA chest [CT angio chest PE protcl 88126] Stat Cat Scan 01/27/23 10:37 Completed CXRP [XR chest 1V portable 32141] Routine Exams 01/31/23 06:00 Completed XR chest 1V portable 58902 Urgent Exams 01/27/23 09:15 Completed CV. echo limited 60558 Routine Ultrasound 01/27/23 14:02 Completed Pending at discharge Category Date Time Status LABORATORY CHEMICAL ASSISTANT request for service Routine Exams 01/30/23 08:47 Taken Complete Blood Count w/Auto AM LABS Lab 02/01/23 04:00 Ordered Urine Culture Routine Lab 01/31/23 02:20 Received Radiology Impressions Chest CTA 01/27/23 10:37 IMPRESSION: 1. No pulmonary embolism through the lobar branches. 2. No RIGHT heart strain. 3. Marked LEFT heart enlargement. 4. Tricuspid regurgitation into hepatic veins. 5. Small bilateral pleural effusions with mild pulmonary venous congestion. 6. Moderate size hiatal hernia. Chest X-Ray 01/31/23 06:00 IMPRESSION: Considerably improved exam from 4 days ago. Echocardiogram: CONCLUSIONS ?Mildly dilated left-ventricle.? Severe diffuse hypokinesia of ?the septum, anteroseptum and LV apex. ? LV ejection fraction around 30-35%, visual. ?Moderately increased left atrial size. ?Thickened mitral valve. ?Minimally thickened tissue valve at the aortic position ?Aortic root measured 4.6 cm at the level of the sinuses . ?There is no pericardial effusion. ?Compared to the study from 09/01/2022, there is slight drop in ?the LV ejection fraction ?Dr Naty Reyes MD FAC ?(Electronically Signed) ?Final Date:? ? ? 27 January? 2022 Laboratory Results WBC 11.6 10^3/uL (4.0-10.0) H 01/31/23 04:17 RBC 4.19 10^6/uL (4.1-5.3) 01/31/23 04:17 Hgb 10.5 g/dL (11.7-16.6) L 01/31/23 04:17 Hct 35.1 % (42.0-52.0) L 01/31/23 04:17 MCV 83.8 fl (80-94) 01/31/23 04:17 MCH 25.1 pg (28.0-34.0) L 01/31/23 04:17 MCHC 29.9 g/dL (30.0-36.0) L 01/31/23 04:17 RDW 16.2 % (12.1-15.1) H 01/31/23 04:17 Plt Count 202 10^3/cmm (130-400) 01/31/23 04:17 MPV 10.7 fL (7.4-10.4) H 01/31/23 04:17 Neut % (Auto) 83.4 % 01/31/23 04:17 Lymph % (Auto) 6.2 % 01/31/23 04:17 Hall % (Auto) 9.3 % 01/31/23 04:17 Eos % (Auto) 0.5 % 01/31/23 04:17 Baso % (Auto) 0.3 % 01/31/23 04:17 Neut # (Auto) 9.67 10^3/uL (1.8-7.7) H 01/31/23 04:17 Lymph # (Auto) 0.7 10^3/uL (0.8-4.8) L 01/31/23 04:17 Hall # (Auto) 1.1 10^3/uL (0.2-0.9) H 01/31/23 04:17 Eos # (Auto) 0.1 10^3/uL (0.0-0.8) 01/31/23 04:17 Baso # (Auto) 0.0 10^3/uL (0.0-0.1) 01/31/23 04:17 Nucleated RBC % (auto) 0 % 01/31/23 04:17 Nucleated RBCs # 0.0 /100WBC 01/31/23 04:17 APTT 23.9 SECONDS (23.9-36.7) 01/30/23 12:30 Sodium 145 mmol/L (136-145) 01/31/23 04:17 Potassium 3.9 mmol/L (3.5-5.1) 01/31/23 04:17 Chloride 113 mmol/L (98-107) H 01/31/23 04:17 Carbon Dioxide 22 mmol/L (22-29) 01/31/23 04:17 Anion Gap 13.9 (5-19) 01/31/23 04:17 BUN 41 mg/dL (8-23) H 01/31/23 04:17 Creatinine 1.0 mg/dL (0.7-1.2) 01/31/23 04:17 GFR Calculation Not Reportable 01/31/23 04:17 Glucose 161 mg/dL (65-115) H 01/31/23 04:17 Calculated Osmolality 314 mOsm/kg (285-295) H 01/31/23 04:17 Calcium 8.7 mg/dL (8.5-10.5) 01/31/23 04:17 Magnesium 2.1 mg/dL (1.7-2.3) 01/28/23 02:57 Total Bilirubin 0.6 mg/dL (0.15-1.2) 01/31/23 04:17 AST 12 U/L (0-40) 01/31/23 04:17 ALT 26 U/L (0-41) 01/31/23 04:17 Alkaline Phosphatase 59 U/L (40-130) 01/31/23 04:17 Troponin T Baseline 326 ng/L (0-15) H* 01/27/23 10:15 Troponin T 120 Minute 322.3 ng/L (0-15) H 01/27/23 12:14 Delta Troponin T -3.7 ABS# (0-10) L 01/27/23 12:14 Troponin T Hi Sens 6Hr 416.0 ng/L (0-15) H 01/27/23 16:32 Troponin T Hi Sens 6Hr Delta 90.0 ng/L (0-12) H* 01/27/23 16:32 C-Reactive Protein 10.1 mg/L (0.0-4.9) H 01/28/23 02:57 NT-Pro-B Natriuret Pep 78914 pg/mL (0-450) H 01/27/23 10:15 Total Protein 5.8 g/dL (6.6-8.7) L 01/31/23 04:17 Albumin 3.6 g/dL (3.5-5.2) 01/31/23 04:17 Globulin 2.2 g/dL (1.3-4.6) 01/31/23 04:17 TSH 2.85 uIU/mL (0.27-4.20) 01/27/23 14:15 Urine Color Yellow (Yellow) 01/31/23 02:20 Urine Appearance Hazy (CLEAR) A 01/31/23 02:20 Urine pH 5 (5-7) 01/31/23 02:20 Ur Specific [place] 1.015 (1.005-1.030) 01/31/23 02:20 Urine Protein 1+ (Negative) H 01/31/23 02:20 Urine Glucose (UA) Norm (Normal) 01/31/23 02:20 Urine Ketones Negative (Negative) 01/31/23 02:20 Urine Blood 3+ (Negative) H 01/31/23 02:20 Urine Nitrate Negative (Negative) 01/31/23 02:20 Urine Bilirubin Neg (Negative) 01/31/23 02:20 Urine Urobilinogen Neg mg/dL (Negative) 01/31/23 02:20 Ur Leukocyte Esterase Negative (Negative) 01/31/23 02:20 Urine RBC >100 /hpf (0-2) H 01/31/23 02:20 Urine WBC 5-10 /hpf (0-5) H 01/31/23 02:20 Ur Squamous Epith Cells 0-4 /hpf (0-5) H 01/31/23 02:20 Uric Acid Crystals >100 /hpf H 01/31/23 02:20 Amorphous Sediment Not Reportable 01/31/23 02:20 Urine Bacteria Trace /hpf (NONE) 01/31/23 02:20 Urine Mucus Trace /hpf 01/31/23 02:20 Vitals Last Vital Signs Temp 97.9 F 01/31/23 07:56 Pulse 79 01/31/23 08:00 Resp 18 01/31/23 08:00 BP 107/79 01/31/23 07:56 Pulse Ox 95 01/31/23 10:54 O2 Del Method 01/31/23 07:56 O2 Flow Rate 2 01/31/23 08:00 Discharge Plan Discharge Patient Disposition: Home Condition: Stable Prescriptions: New aspirin 81 mg Tablet,Delayed Release (Dr/Ec) 81 mg PO DAILY Qty: 0 0RF atorvastatin 40 mg Tablet 80 mg PO DAILY 30 Days Qty: 30 0RF metoprolol tartrate 25 mg Tablet 25 mg PO BID@0900,2100 30 Days Qty: 60 0RF levofloxacin 500 mg tablet 500 mg PO DAILY 7 Days Qty: 7 0RF Flomax 0.4 mg capsule 0.4 mg PO DAILY Qty: 30 0RF Continued latanoprost 0.005 % drops 1 drop ophthalmic (eye) BEDTIME Rx Instructions: BOTH EYES multivitamin Tablet 1 tab PO QPM coenzyme Q10 [CoQ-10] 100 mg Capsule 100 mg PO QPM Eliquis 5 mg tablet 2.5 mg PO QPM Discontinued valsartan 40 mg tablet 20 mg PO QPM Discharge Orders: Discharge Order (Routine); Ordered 01/31/23 Ordered By: Stefan Conn Referrals: Dennys Simmons MD [Physician] - 7-10 days Maggie Alexander FNP [Nurse Practitioner] - 02/10/23 8:45 am Gómez Figueroa MD [Primary Care Provider] - 02/07/23 1:30 pm (Your follow up appointment will be with Roe Menezes N.P.) Discharge Diet: Cardiac Patient Instructions: Metoprolol (By mouth) (Lopressor, Toprol XL), Aspirin (By mouth) (Lesly Extra Strength, Lesly Aspirin Children's,..., Atorvastatin (By mouth) (Lipitor), Levofloxacin (By mouth) (Levaquin, Levaquin Leva-joey), Opioid Safety Activity Restrictions/Additional Instructions: Andres catheter will remain in place till you follow-up with Dr. Simmons within next 1 week. Voiding trial will be done at his office. For urinary retention you will be on Flomax 0.4 mg once daily. Levaquin is the antibiotic which you need to take for next 7 days. You will be taking metoprolol 25 mg twice daily. Valsartan has been withheld for now. Please check your blood pressure daily at home and maintain a blood pressure diary and follow-up with Maggie Alexander/nurse practitioner from cardiology services within next 1 week. Follow-up with Dr. Bone within next 1 month. Discharge Attestations Time Spent in Discharge Care*: greater than 30 min Specific Discharge Activities: educating patient, educating and/or supporting family/caregiver, discussing with pcp/other providers, discussing with case management social worker/social workers/dc planners, documenting/other paperwork and evaluating patient/reviewing data Quality Metrics Clinical Quality Measures [ Acute Myocardial Infaction { Clinical Trial Participant: No; Contraindication to aspirin: None; Aspirin prescribed; Contraindication to statin: None; Statin prescribed; Contraindication to PCI: Intervention not indicated; Contrai ndication to Fibrinolytics: None; fibrinolytics given}] Coding Level of Care Code 94830 Total time (in minutes) for Discharge: 45 Diagnoses Acute on chronic systolic heart failure I50.23 Myocardial injury I5A Aortic valve replaced Z95.2 S/P ascending aortic aneurysm repair Z98.890; Z86.79 History of hypertension Z86.79 Hx of cardiomyopathy Z86.79 A-fib I48.91
--- NOTE | 2023-01-31 11:54 | PC.NURSE ---
Patient and family educated regarding discharge instructions and follow up appointments. All questions answered. Appointments with Iris, PCP, and Maggie Alexander were made. Patient IV removed. Rangel left in place per physician request. educated regarding rangel care. Patient left via private vehicle accompanied by spouse.
== END 2023-01-31 11:57 | disposition home or self-care (01) | DRG 280 ==
LOC: ER 13:18 → CSU 13:22
PROVIDERS: Internal Medicine; Physician Assistant; Student in an Organized Health Care Education/Training Program; Admitting Provider Internal Medicine; Emergency Provider Emergency Medicine; PCP Family Medicine; Visit Provider Student in an Organized Health Care Education/Training Program
PROC: B2131ZZ Fluoroscopy of Multiple Coronary Artery Bypass Grafts using Low Osmolar Contrast (ICD-10-PCS; principal; 2023-01-30 09:00)
DX: I21.4 Non-ST elevation (NSTEMI) myocardial infarction (principal); I50.23 Acute on chronic systolic (congestive) heart failure; I25.719 Atherosclerosis of autologous vein coronary artery bypass graft(s) with unspecified angina pectoris; I25.729 Atherosclerosis of autologous artery coronary artery bypass graft(s) with unspecified angina pectoris; N17.9 Acute kidney failure, unspecified; N39.0 Urinary tract infection, site not specified; I42.9 Cardiomyopathy, unspecified; E87.0 Hyperosmolality and hypernatremia; I11.0 Hypertensive heart disease with heart failure; I48.0 Paroxysmal atrial fibrillation; R31.9 Hematuria, unspecified; T83.021A Displacement of indwelling urethral catheter, initial encounter; Y82.9 Unspecified medical devices associated with adverse incidents; R33.9 Retention of urine, unspecified; Z79.01 Long term (current) use of anticoagulants; Z95.2 Presence of prosthetic heart valve; H54.8 Legal blindness, as defined in USA; I24.8 Other forms of acute ischemic heart disease; I95.9 Hypotension, unspecified; Z88.0 Allergy status to penicillin; Z88.2 Allergy status to sulfonamides
CPT/HCPCS: 36415; 51702; 71045; 71275; 80048; 80053; 81001; 83735; 83880; 84443; 84484; 85025; 85347; 85730; 86140; 87086; 93005; 93308; 93455; 94640; 94760; 96372; 99152; 99153; 99285; C1769; C1887; C1894; J1644; J1650; J1940; J2250; J2270; J3010; J3490; J7030; Q9967

== ENCOUNTER 2023-02-04 12:20 | Inpatient (IN) | payer MEDICARE, SELFPAY ==
[2023-02-04] VITALS (8 sets, daily range): BP systolic 60–84; BP diastolic 41–53; PULSE 60–68; RESP 21–40; O2SAT 97–98; BMI 26.4
--- NOTE | 2023-02-04 12:38 | XR_ITS ---
WS: [id number] Portable AP upright chest, 02/04/2023 Clinical Data: SOB Comparison: Portable chest, 01/31/2023 Findings: There is opacity in the left lower lobe which is probably a combination of effusion, atelec tasis and pneumonia. There may be a small right pleural effusion. The heart is enlarged. The pulmonar y vascularity is minimally prominent. The aortic arch and descending thoracic aorta are tortuous. The re are midline sternotomy sutures and artificial heart valve. Monitor leads are on the chest wall. Th ere is an aortic stent graft. XR/XR chest 1V portable [id number] Impression: 1. Slight increase in opacity in left lower lobe. 2. Cardiomegaly and atherosclerosis. 3. Artificial heart valve. 4. Pulmonary vascular congestion.
--- NOTE | 2023-02-04 12:39 | ECG_ITS ---
[facility] Test Date: 2023-02-04 Pat Name: Tim Pack Department: Room: Gender: Male Lead Case Manager: : 1940 Requested By: Anurag Mosley Order Number: [id number] Marisa MD: Malik Caputo M.D. Measurements Intervals [place] Rate: 66 P: -7 CA: 138 QRS: -52 QRSD: 117 T: 121 QT: 481 QTc: 505 Interpretive Statements SINUS RHYTHM WITH FREQUENT SUPRAVENTRICULAR PREMATURE COMPLEXES IN A BIGEMINAL PATTERN PATTERN CONSISTENT WITH PULMONARY DISEASE LEFT ANTERIOR FASCICULAR BLOCK [QRS AXIS <= -45, QR IN I, RS IN II] MODERATE VOLTAGE CRITERIA FOR LVH, CONSIDER NORMAL VARIANT [MEETS CRITERIA IN ONE OF: R(aVL), S(V1), R(V5), R(V5/V6)+S(V1)] NONSPECIFIC T-WAVE ABNORMALITY PROLONGED QT INTERVAL INTERPRETATION BASED ON A DEFAULT AGE OF 40 YEARS Compared to ECG 01/27/2023 15:30:17 Left anterior fascicular block now present Prolonged QT interval now present Electronically Signed On 02-04-2023 15:14:46 HR INTERN by Malik Caputo M.D. [email or web address]
[2023-02-04 12:54] LABS: Basophils % 0.2 %; Hematocrit 32.8 % (42.0-52.0); Hemoglobin 9.2 g/dL (11.7-16.6); Lymphocytes # 0.9 10^3/uL (0.8-4.8); Lymphocytes % 4.9 %; Mean Corpuscular Hemoglobin 25.6 pg (28.0-34.0); Mean Corpuscular Volume 91.1 fl (80-94); Monocytes # 0.5 10^3/uL (0.2-0.9); Monocytes % 2.8 %; Neutrophils # 17.53 10^3/uL (1.8-7.7); Neutrophils % 91.3 %; Nucleated Red Blood Cells % 0.1 %; Platelet Count 236 10^3/cmm (130-400); Red Cell Distribution Width 17.2 % (12.1-15.1); White Blood Count 19.2 10^3/uL (4.0-10.0)
--- NOTE | 2023-02-04 12:56 | W.ED.SOB ---
HPI - SOB/Dyspnea General: Chief Complaint: Shortness of Breath/Dyspnea Stated Complaint: SOB Time Seen by Provider: 02/04/23 12:45 Source: family History of Present Illness: HPI Narrative: 83-year-old male presents to the emergency room via EMS. He has been getting increasingly short of breath the last couple of days. He has had problems with heart failure in the past. Patient was recently hospitalized with decompensated congestive heart failure on January 27 and discharged home on January 30. According to his he seemed to be doing okay according to the until this morning. He was talking but slow to respond to breakfast and then worsened after that. He is nonresponsive at this time he will mumble a few things but is unable to give any me in full assistance with his history. MD elicited complaint: shortness of breath and cough Pertinent past history: congestive heart failure Review of Systems General: Reports: ROS unobtainable due to mental status PFSH ED PFSH: Medical History A-fib Ascending aorta dilatation Coronary artery disease History of hypertension Hx of arteriosclerotic cardiovascular disease Hx of cardiomyopathy Hx of chest pain Surgical History Aortic valve replaced Hx of aortic valve replacement Hx of appendectomy Hx of CABG Hx of right cataract extraction S/P ascending aortic aneurysm repair Family History Denies family history of CAD (coronary artery disease) Social History Smoking and tobacco status: never smoked Physical Exam HENMT: COMMON NORMALS: normocephalic, atraumatic and hearing grossly normal bilaterally HEAD & SCALP: normocephalic and atraumatic OTHER: [place] dry Resp: EFFORT & INSPECTION: Yes tachypneic, Yes labored and Yes uses accessory muscles AUSCULTATION: crackles Cardio: RATE: bradycardic GI: COMMON NORMALS: Soft to palpation and No hepatosplenomegaly present AUSCULTATION: Yes normoactive bowel sounds PALPATION: Yes Soft to palpation, No Tenderness to palpation present (GI), No Guarding due to palpation present (GI) and Yes No hepatosplenomegaly present Extremity: COMMON NORMALS: no calf tenderness GENERAL: Yes edema Skin: COMMON NORMALS: no rashes or lesions noted GENERAL SKIN EXAM: no rashes or lesions noted Course Vital Signs: Vital signs: Vital Signs Pulse Rate 61 02/04/23 15:14 Respiratory Rate 40 H 02/04/23 20:55 Blood Pressure 66/53 02/04/23 15:14 Pulse Oximetry 98 02/04/23 20:55 Oxygen Delivery Me thod 02/04/23 13:14 Oxygen Flow Rate 5 02/04/23 13:14 MDM - SOB/Dyspnea Medical Decision Making Labs imaging and EKG reviewed. No acute ST elevation but marked elevation in troponin suspect patient has had another coronary event reviewing history he has significant coronary artery disease based on previous heart cath. He has a very severe systolic cardiomyopathy with a reduced ejection fraction he has an acute kidney injury and appears to be septic at the same time. He was not given fluid bolus because of his congestive heart failure and ischemic cardiomyopathy which is markedly worsened his outcome of he was given a large fluid bolus he was started on heparin and given antibiotics and cultured. Had a discussion with the about his CODE STATUS. At this point I think we should consider making him a Do Not Recussitate we can certainly continue to treat what with this is acute problem but given his overall status resuscitation efforts would be futile. At some point should consider possibly comfort cares discussed with hospitalist they are in agreement he will talk to the patient's . Medical Records I reviewed the patient's medical records. Lab Data I reviewed the patient's lab results. 02/04/23 12:45 02/04/23 12:45 Labs/Radiology: Radiology Impressions Chest X-Ray 02/04/23 12:38 Impression: 1. Slight increase in opacity in left lower lobe. 2. Cardiomegaly and atherosclerosis. 3. Artificial heart valve. 4. Pulmonary vascular congestion. Laboratory Results WBC 19.2 10^3/uL (4.0-10.0) H 02/04/23 12:45 RBC 3.60 10^6/uL (4.1-5.3) L 02/04/23 12:45 Hgb 9.2 g/dL (11.7-16.6) L 02/04/23 12:45 Hct 32.8 % (42.0-52.0) L 02/04/23 12:45 MCV 91.1 fl (80-94) 02/04/23 12:45 MCH 25.6 pg (28.0-34.0) L 02/04/23 12:45 MCHC 28.0 g/dL (30.0-36.0) L 02/04/23 12:45 RDW 17.2 % (12.1-15.1) H 02/04/23 12:45 Plt Count 236 10^3/cmm (130-400) 02/04/23 12:45 MPV 12.0 fL (7.4-10.4) H 02/04/23 12:45 Neut % (Auto) 91.3 % 02/04/23 12:45 Lymph % (Auto) 4.9 % 02/04/23 12:45 [place] % (Auto) 2.8 % 02/04/23 12:45 Eos % (Auto) 0.0 % 02/04/23 12:45 Baso % (Auto) 0.2 % 02/04/23 12:45 Neut # (Auto) 17.53 10^3/uL (1.8-7.7) H 02/04/23 12:45 Lymph # (Auto) 0.9 10^3/uL (0.8-4.8) 02/04/23 12:45 [place] # (Auto) 0.5 10^3/uL (0.2-0.9) 02/04/23 12:45 Eos # (Auto) 0.0 10^3/uL (0.0-0.8) 02/04/23 12:45 Baso # (Auto) 0.0 10^3/uL (0.0-0.1) 02/04/23 12:45 Nucleated RBC % (auto) 0.1 % 02/04/23 12:45 Nucleated RBCs # 0.0 /100WBC 02/04/23 12:45 Sodium 138 mmol/L (136-145) 02/04/23 12:45 Potassium 5.8 mmol/L (3.5-5.1) H 02/04/23 12:45 Chloride 100 mmol/L (98-107) 02/04/23 12:45 Carbon Dioxide 11 mmol/L (22-29) L 02/04/23 12:45 Anion Gap 32.8 (5-19) H 02/04/23 12:45 BUN 58 mg/dL (8-23) H 02/04/23 12:45 Creatinine 3.1 mg/dL (0.7-1.2) H 02/04/23 12:45 GFR Calculation Not Reportable 02/04/23 12:45 Glucose 490 mg/dL (65-115) H 02/04/23 12:45 Calculated Osmolality 324 mOsm/kg (285-295) H 02/04/23 12:45 Lactic Acid 12.4 mmol/L (0.5-2.2) H* 02/04/23 13:10 Lactic Acid (Sepsis) 11.0 mmol/L (0.5-2.2) H* 02/04/23 15:26 Calcium 8.5 mg/dL (8.5-10.5) 02/04/23 12:45 Total Bilirubin 1.0 mg/dL (0.15-1.2) 02/04/23 12:45 AST 346 U/L (0-40) H 02/04/23 12:45 ALT 280 U/L (0-41) H 02/04/23 12:45 Alkaline Phosphatase 241 U/L (40-130) H 02/04/23 12:45 Creatine Kinase 701 U/L (39-308) H* 02/04/23 12:45 Creatine Kinase Cancelled 02/04/23 12:45 Troponin T Baseline 2459 ng/L (0-15) H* 02/04/23 12:45 Troponin T 120 Minute 2758 ng/L (0-15) H 02/04/23 14:54 Delta Troponin T 299 ABS# (0-10) H* 02/04/23 14:54 NT-Pro-B Natriuret Pep 51241 pg/mL (0-450) H 02/04/23 12:45 Total Protein 6.1 g/dL (6.6-8.7) L 02/04/23 12:45 Albumin 3.4 g/dL (3.5-5.2) L 02/04/23 12:45 Globulin 2.7 g/dL (1.3-4.6) 02/04/23 12:45 Urine Color Yellow (Yellow) 02/04/23 13:04 Urine Appearance Cloudy (CLEAR) A 02/04/23 13:04 Urine pH 5 (5-7) 02/04/23 13:04 Ur Specific [place] 1.020 (1.005-1.030) 02/04/23 13:04 Urine Protein 1+ (Negative) H 02/04/23 13:04 Urine Glucose (UA) Norm (Normal) 02/04/23 13:04 Urine Ketones 1+ (Negative) H 02/04/23 13:04 Urine Blood 3+ (Negative) H 02/04/23 13:04 Urine Nitrate Negative (Negative) 02/04/23 13:04 Urine Bilirubin Neg (Negative) 02/04/23 13:04 Urine Urobilinogen Norm mg/dL (Negative) 02/04/23 13:04 Ur Leukocyte Esterase 2+ (Negative) H 02/04/23 13:04 Urine RBC >100 /hpf (0-2) H 02/04/23 13:04 Urine WBC >100 /hpf (0-5) H 02/04/23 13:04 Ur Squamous Epith Cells 0-4 /hpf (0-5) H 02/04/23 13:04 Amorphous Sediment 2+ /hpf 02/04/23 13:04 Urine Bacteria 4+ /hpf (NONE) H 02/04/23 13:04 Critical Care Time Critical Care Time: Critical Care Time: Yes Total Critical Care Time: 40 Attestation: The high probability of a clinically significant, sudden or life threatening deterioration of the patient's cardiovascular respiratory renal system(s) required my full and direct attention, intervention and personal management. The critical care time is as shown. This time is in addition to time spent performing any reported procedures but includes the following: [x] Data and vital sign review and interpretation [x] Patient assessment, examination and intervention [x] Documentation [x] Medication orders and management Discharge Plan Discharge Patient Disposition: Admitted As Inpatient Admit Provider: Stefan Conn Clinical Impression: NSTEMI (non-ST elevated myocardial infarction), Acute on chronic systolic heart failure, Acute kidney injury, Lactic acidosis, Shock, Hyperkalemia, Hx of cardiomyopathy, High anion gap metabolic acidosis, Transaminitis, Pneumonia Condition: Stable Coding Level of Care Code ED Network And Threat Support Specialist for Gretta Cedeño
[2023-02-04] MEDS: DOBUTamine drip 500 MG/250 ML PREMIX 5.07 MG IV (13:15)
[2023-02-04] MEDS: sodium chloride 0.9% 1,000 ML 999 ML IV (13:16)
[2023-02-04 13:29] LABS: Alanine Aminotransferase 280 U/L (0-41); Albumin Level 3.4 g/dL (3.5-5.2); Alkaline Phosphatase 241 U/L (40-130); Anion Gap 32.8 (5-19); Aspartate Amino Transferase 346 U/L (0-40); Blood Urea Nitrogen 58 mg/dL (8-23); Calcium 8.5 mg/dL (8.5-10.5); Carbon Dioxide 11 mmol/L (22-29); Chloride 100 mmol/L (98-107); Globulin 2.7 g/dL (1.3-4.6); Glucose 490 mg/dL (65-115); Osmolality Calculated 324 mOsm/kg (285-295); Potassium 5.8 mmol/L (3.5-5.1); Sodium 138 mmol/L (136-145); Total Protein 6.1 g/dL (6.6-8.7)
[2023-02-04 13:39] LABS: Creatine Phosphokinase 701 U/L (39-308); Troponin(5th) Baseline 2459 ng/L (0-15)
--- NOTE | 2023-02-04 13:51 | PC.NURSE ---
Patient placed on telemetry and SPO2, NIBP.
[2023-02-04 13:56] LABS: NT Pro B Type Natriuretic Pept 49462 pg/mL (0-450)
[2023-02-04 13:59] LABS: Lactic Sepsis W/Reflex 12.4 mmol/L (0.5-2.2)
[2023-02-04 14:14] LABS: Add Urine Culture? Yes; Add Urine Microscopic? YES; Amorphous Sediment Urine 2+ /hpf; Bacteria Urine 4+ /hpf; Bilirubin Urine Neg (Negative); Blood Urine 3+ (Negative); Glucose Urine UA Norm (Normal); Ketones Urine 1+ (Negative); Leukocyte Esterase Urine 2+ (Negative); Nitrate Urine Negative (Negative); Protein Urine 1+ (Negative); RBC Urine >100 /hpf (0-2); Squamous Epithelial Cell Urine 0-4 /hpf (0-5); Urine Appearance Cloudy (CLEAR); Urine Color Yellow (Yellow); Urobilinogen Urine Norm (Negative); WBC Urine >100 /hpf (0-5); pH Urine 5 (5-7)
[2023-02-04] MEDS: levofloxacin-dextrose 5 % 750 MG/150 ML PREMIX 100 MG IV (14:21)
[2023-02-04] MEDS: sodium chloride 0.9% 500 ML IV (14:21)
[2023-02-04] MEDS: heparin 5,000 unit/mL INJ 1 mL IV (14:23)
[2023-02-04] MEDS: heparin drip 25,000 UNIT/500 ML PREMIX 18.92 UNIT IV (14:23)
--- NOTE | 2023-02-04 14:56 | ECG_ITS ---
[facility] Test Date: 2023-02-04 Pat Name: Tim Pack Department: Room: 270 Gender: Male [employer] Of [employer]: : 1940 Requested By: Anurag Mosley Order Number: [id number] Reading MD: Naty Reyes M.D. Measurements Intervals [place] Rate: 56 P: 54 VA: 183 QRS: 205 QRSD: 121 T: -89 QT: 547 QTc: 529 Interpretive Statements SINUS BRADYCARDIA POSSIBLE RIGHT VENTRICULAR HYPERTROPHY [SOME/ALL OF: PROMINENT R IN V1, LATE TRANSITION, RAD, NANCY, SSS] POSSIBLE ANTEROSEPTAL MYOCARDIAL INFARCTION , PROBABLY RECENT [30 ms Q WAVE IN V1-V4] ACUTE MA Compared to ECG 02/04/2023 12:39:18 Myocardial infarct finding now present Sinus rhythm no longer present Left anterior fascicular block no longer present T-wave abnormality no longer present Prolonged QT interval no longer present Electronically Signed On 02-06-2023 22:57:45 CDT by Naty Reyes M.D. [id number]
--- NOTE | 2023-02-04 14:57 | P.HP_ITS ---
Providers/Chief Complaint Primary Care Provider: Gómez Figueroa MD Chief Complaint: SOB History of Present Illness Tim Pack is a 83 year old male with past medical history of CAD, post CABG, congestive heart failure with EF of 3035%, COVID-19, ascending aortic dilatation who was recently in hospital and was discharged on 01/31 when he was admitted for non-ST elevation NE and underwent cardiac angiogram. During that hospitaliz ation he was treated with full dose anticoagulation and his hospitalization was complicated by him developing hematuria secondary to traumatic catheterization. He was eventually discharged hemodynamically stable condition on 01/31. Today he was brought into the ER via EMS because of altered mental status, difficulty in breathing since today morning. As per his who is at bedside patient's mentation and confusion was getting worse since last night which was acute and all of a sudden. Patient was doing fine since discharge without any chest pain, nausea, vomiting, headache, dizziness, diarrhea. In the ER patient was found to be hypotensive with blood pressures of 60s systolics, confused and noncoherent, gasping for air with saturation of 95% on 5 L with cold and clammy peripheries. Blood work was done which showed white count 19.2, hemoglobin of 9.2, potassium of 5.8, bicarb of 11, creatinine of 3.1, BUN of 58, lactate of 12.4, AST/ALT of 346/280 with CPK of 701, baseline troponin of 2004 and 59, proBNP of more than 49,000 with a UA concerning for more than 100 RBC and more than 100 WBCs. Review of Systems General: Reports: ROS unobtainable due to mental status Medications/Allergies Home Medications Medication Instructions Recorded Confirmed Last Taken Type latanoprost 0.005 % eye drops 1 drop ophthalmic (eye) BEDTIME 06/03/20 02/04/23 01/26/23 History coenzyme Q10 100 mg capsule 100 mg PO QPM 04/19/22 02/04/23 02/03/23 History (CoQ-10) multivitamin 1 tab PO QPM 04/19/22 02/04/23 01/26/23 History apixaban 5 mg tablet (Eliquis) 5 mg PO BID 01/27/23 02/04/23 02/04/23 History atorvastatin 40 mg tablet 80 mg PO DAILY 30 days #30 tabs 01/30/23 02/04/23 02/03/23 Rx metoprolol tartrate 25 mg tablet 25 mg PO BID@0900,2100 30 days #60 01/30/23 02/04/23 02/04/23 Rx tabs Allergies Allergy/AdvReac Type Severity Reaction Status Date / Time Penicillins Allergy Unknown Verified 02/04/23 13:54 Sulfa (Sulfonamide Allergy Unknown Verified 02/04/23 13:54 Antibiotics) levaquin Allergy Unknown unknown Uncoded 02/01/23 12:33 flox antibiotics Allergy Unknown Uncoded 02/04/23 13:58 PFSH Acute PFSH: Medical History (Updated 02/04/23 @ 15:09 by Stefan Conn MD) A-fib Ascending aorta dilatation Coronary artery disease History of hypertension Hx of arteriosclerotic cardiovascular disease Hx of cardiomyopathy Hx of chest pain Surgical History (Updated 02/01/23 @ 00:01 by KATHY Hebert) Aortic valve replaced Hx of aortic valve replacement Hx of appendectomy Hx of CABG Hx of right cataract extraction S/P ascending aortic aneurysm repair Family History Denies family history of CAD (coronary artery disease) Social History Smoking and tobacco status: never smoked Vitals/I&O/Wt Last Vital Signs Pulse 60 02/04/23 13:45 Resp 38 H 02/04/23 13:45 BP 84/50 02/04/23 13:45 Pulse Ox 97 02/04/23 13:45 O2 Del Method 02/04/23 13:14 O2 Flow Rate 5 02/04/23 13:14 Weight last 48 hrs Weight 67.585 kg Physical Exam Narrative: General: In acute distress, confused, noncoherent, AO x1, pallor present HEENT: PERRLA, pupils bilaterally equal and reactive Chest: Normal vesicular breath sounds, no added sounds, equal good air entry bilaterally CVS: S1-S2 irregularly irregular, soft pansystolic murmur present at apex no tachycardia, no gallops, no rubs Abdomen: Soft, nontender, no organomegaly, bowel sounds present Neuro: No focal deficits, no facial deformity, moving all limbs Data 02/04/23 12:45 02/04/23 12:45 Micro: Microbiology 02/04/23 14:25 Blood Culture - Preliminary Blood SPECIMEN COLLECTED 02/04/23 14:15 Blood Culture - Preliminary Blood SPECIMEN COLLECTED A&P Assessment and plan (1) Shock: (2) Acute kidney injury: (3) NSTEMI (non-ST elevated myocardial infarction): (4) Acute on chronic systolic heart failure: (5) Hyperkalemia: (6) High anion gap metabolic acidosis: (7) Pneumonia: (8) UTI (urinary tract infection): (9) Transaminitis: (10) Lactic acidosis: (11) Hematuria: (12) Ascending aorta dilatation: (13) A-fib: (14) Goals of care, counseling/discussion: Plan 83-year-old gentleman with remote history of CABG, recent history of non-ST elevation NE, congestive heart failure who was recently discharged earlier this week after being managed for non-ST elevation NE with cardiac angiogram and anticoagulation presents back to the ER today in shock and non-ST elevation NE with evidence of multiorgan dysfunction along with congestive heart failure found to be having acute kidney injury with high anion gap metabolic acidosis and hyperkalemia along with lactic acidosis with blood pressures in 60s systolic. VP TRANSPORTATION discussed in detail with patient's spouse/DPOA at bedside. We discussed that unfortunately Mr. Pack is extremely acutely sick right now given multiorgan dysfunction with shock along with his baseline poor health. We discussed there is a high chance that he would need multiple pressors, automatic coin machine mechanic al ventilation at anticoagulation for management. We discussed that it is quite possible that his heart functions would deteriorate further given significant amount of myocardial injury determined through baseline troponin of 2500 and is possible if and when he makes through that he will be worse than his baseline functional and mental capacity. Ms. Mejia//DPOA states that patient would have not wanted to live like this and if she was in this place she would rather have comfort measures and want us to go ahead with comfort measures. Plan: Admit to [facility] with comfort measures status only. Morphine Ativan as needed. Hold off on heparin drip, pressors, mechanical ventilation or further blood work. Hold antibiotics. Scopolamine patch as needed. Andres catheter. Attestations Medical Necessity Statement*: Admission for more than 2 midnights for initiation of comfort measures for patient who presents in cardiogenic/septic with WBC of multiorgan failure with acute kidney injury, had a gap metabolic acidosis hypokalemia transaminitis and pain and possible need of mechanical ventilation. Coding Level of Care Code Critical Care >/= 30 minutes Critical care time (in minutes): 80 The high probability of a clinically significant, sudden or life threatening deterioration, as referenced in this documentation, required my full and direct attention, intervention and personal management. The critical care time shown is in addition to time spent performing any reported separately billable procedures and includes the following: [x] Data and vital sign review and interpretation [x ] Patient assessment, examination and intervention [x] Medication orders and management [x] Patient/Family updates as able [x] Care Coordination and Documentation. Diagnoses Shock R57.9 Acute kidney injury N17.9 NSTEMI (non-ST elevated myocardial infarction) I21.4 Acute on chronic systolic heart failure I50.23 Hyperkalemia E87.5 High anion gap metabolic acidosis E87.29 Pneumonia J18.9 UTI (urinary tract infection) N39.0 Transaminitis R74.01 Lactic acidosis E87.20 Hematuria R31.9 Ascending aorta dilatation I77.810 A-fib I48.91 Goals of care, counseling/discussion Z71.89
[2023-02-04 15:17] LABS: Reflex Lactate Order REFLEX LACTIC ORDERD
[2023-02-04] MEDS: LORazepam 2 mg/mL INJ 1 mL IVP (15:46)
[2023-02-04] MEDS: morphine 4 mg/mL SDV 1 mL IVP ×4 (15:54→22:47)
[2023-02-04 18:08] LABS: Troponin 5 2HR 2758 ng/L (0-15); Troponin 5 2HR Delta 299 ABS# (0-10)
--- NOTE | 2023-02-04 22:13 | PC.NURSE ---
Addendum entered by Bonnie Lucas 02/04/23 23:41: pt family refused for pt to be repostioned and oral hygeine be done Original Note: pt family refused for pt to be repostioned and oral hygeine done
--- NOTE | 2023-02-04 23:42 | PC.NURSE ---
pt family refused due to pt being on comfort care
[2023-02-05] MEDS: morphine 4 mg/mL SDV 1 mL IVP ×4 (03:18→23:53)
--- NOTE | 2023-02-05 05:11 | PC.NURSE ---
pt family refused
[2023-02-05 12:01] VITALS: RESP 22
[2023-02-05] MEDS: LORazepam 2 mg/mL INJ 1 mL IVP (12:16)
[2023-02-05 15:09] VITALS: RESP 14
--- NOTE | 2023-02-05 16:02 | P.PN_ITS ---
Subjective Subjective: Patient remains comfortable. Multiple family members at bedside. at bedside. States patient seems comfortable. She has been recording the number of apneic events overnight. We discussed in detail that every patient has different pattern of apnea prior to passing away. We discussed more i mportant right now is to keep him comfortable as further goals of care discussions yesterday and pattern of apnea would be different for everybody. Family and patient's verbalized understanding and are thankful for all the care patient has been getting at the hospital. Vitals/I&O/Wt Last Vital Signs Pulse 61 02/04/23 15:14 Resp 14 02/05/23 15:09 BP 66/53 02/04/23 15:14 Pulse Ox 98 02/04/23 20:55 O2 Del Method 02/04/23 13:14 O2 Flow Rate 5 02/04/23 13:14 Weight last 48 hrs Weight 67.585 kg Physical Exam Narrative: Deferred given comfort measures status. Patient having Kussmaul's breathing Data 02/04/23 12:45 02/04/23 12:45 Micro: Microbiology 02/04/23 14:25 Blood Culture - Preliminary Blood NEGATIVE TO DATE 02/04/23 14:15 Blood Culture - Preliminary Blood NEGATIVE TO DATE 02/04/23 14:25 Blood Culture - Preliminary Blood SPECIMEN COLLECTED 02/04/23 14:15 Blood Culture - Preliminary Blood SPECIMEN COLLECTED A&P Assessment and plan (1) Shock: (2) Acute kidney injury: (3) NSTEMI (non-ST elevated myocardial infarction): (4) Acute on chronic systolic heart failure: (5) Hyperkalemia: (6) High anion gap metabolic acidosis: (7) Pneumonia: (8) UTI (urinary tract infection): (9) Transaminitis: (10) Lactic acidosis: (11) Hematuria: (12) Ascending aorta dilatation: (13) A-fib: (14) Goals of care, counseling/discussion: Plan 83-year-old gentleman with remote history of CABG, recent history of non-ST elevation GA, congestive heart failure who was recently discharged earlier this week after being managed for non-ST elevation GA with cardiac angiogram and anticoagulation presents back to the ER today in shock and non-ST elevation GA with evidence of multiorgan dysfunction along with congestive heart failure found to be having acute kidney injury with high anion gap metabolic acidosis and hyperkalemia along with lactic acidosis with blood pressures in 60s systolic. SUPERVISOR SLASHING DEPARTMENT discussed in detail with patient's spouse/DPOA at bedside. We discussed that unfortunately Mr. Pack is extremely acutely sick right now given m ultiorgan dysfunction with shock along with his baseline poor health. We discussed there is a high chance that he would need multiple pressors, mechanical ventilation at anticoagulation for management. We discussed that it is quite possible that his heart functions would deteriorate further given significant amount of myocardial injury determined through baseline troponin of 2500 and is possible if and when he makes through that he will be worse than his baseline functional and mental capacity. Ms. Mejia//DPOA states that patient would have not wanted to live like this and if she was in this place she would rather have comfort measures and want us to go ahead with comfort measures. Plan: Continue with comfort measures. Case management consulted for possible placement with hospice. Palliative consult for family members comfort. Attestations Medical Necessity Statement*: Requires further hospitalization for comfort measure status Diagnoses Shock R57.9 Acute kidney injury N17.9 NSTEMI (non-ST elevated myocardial infarction) I21.4 Acute on chronic systolic heart failure I50.23 Hyperkalemia E87.5 High anion gap metabolic acidosis E87.29 Pneumonia J18.9 UTI (urinary tract infection) N39.0 Transaminitis R74.01 Lactic acidosis E87.20 Hematuria R31.9 Ascending aorta dilatation I77.810 A-fib I48.91 Goals of care, counseling/discussion Z71.89
--- NOTE | 2023-02-05 20:19 | PC.NURSE ---
This nurse introduced self to patient and family member, currently at bedside. Ensured family member knows how to operate call light system for assistance and needs. All needs met at this time.
[2023-02-06] MEDS: morphine 4 mg/mL SDV 1 mL IVP (03:50)
[2023-02-06] MEDS: glycopyrrolate 0.2 mg/mL SDV 2 mL IV (04:14)
--- NOTE | 2023-02-06 07:20 | PC.NURSE ---
Patient's apical pulse was checked for 1 full minute by this nurse and Katerina Roque RN. Patient time of was called at 0720. supervisor special services Lizzette and Dr. Conn notified. Patient's family requests [facility] in [facility]
--- NOTE | 2023-02-06 08:15 | PC.NURSE ---
Patient's who is at bedside along with one of her friends was updated that [facility] would like the patient's body moved to the morgue for holding until they contact her. Patient's states, Absolutely not I would if his organs were any good but they are not and we are not going to be doing any type of organ donation. Please call the home for me. [facility] in [place] contacted. at this time.
--- NOTE | 2023-02-06 08:43 | P.DES_ITS ---
Discharge Providers DDS Date of Admission: 02/04/23 15:45 Date Summary Completed: 02/06/23 Attending Provider at Admission: Stefan Conn MD Time of : 07:20 Attending Provider at Discharge: Stefan Conn MD Primary Care Provider: Gómez Figueroa MD DS Diagnoses Hospital Diagnoses (1) Shock: (2) Acute kidney injury: (3) NSTEMI (non-ST elevated myocardial infarction): (4) Acute on chronic systolic heart failure: (5) Hyperkalemia: (6) High anion gap metabolic acidosis: (7) Pneumonia: (8) UTI (urinary tract infection): (9) Transaminitis: (10) Lactic acidosis: (11) Hematuria: (12) Ascending aorta dilatation: (13) A-fib: (14) Goals of care, counseling/discussion: Reason for Visit Reason for Visit SOB Summary Date and Time of Date of : 02/06/23 Time of : 07:20 Summary Summary: Tim Pack is a 83 year old male with past medical history of CAD, post CABG, congestive heart failure with EF of 3035%, COVID-19, ascending aortic dilatation who was recently in hospital and was discharged on 01/31 when he was admitted for non-ST elevation CA and underwent cardiac angiogram.? During that hospitalization he was treated with full dose anticoagulation and his hospitalization was complicated by him developing hematuria secondary to traumatic catheterization. He was eventually discharged hemodynamically stable condition on 01/31. Today he was brought into the ER via EMS because of altered mental status, difficulty in breathing since today morning.? As per his who is at bedside patient's mentation and confusion was getting worse since last night which was acute and all of a sudden.? Patient was doing fine since discharge without any chest pain, nausea, vomiting, headache, dizziness, diarrhea. In the ER patient was found to be hypotensive with blood pressures of 60s s ystolics, confused and noncoherent, gasping for air with saturation of 95% on 5 L with cold and clammy peripheries. Blood work was done which showed white count 19.2, hemoglobin of 9.2, potassium of 5.8, bicarb of 11, creatinine of 3.1, BUN of 58, lactate of 12.4, AST/ALT of 346/280 with CPK of 701, baseline troponin of 2059, proBNP of more than 49,000 with a UA concerning for more than 100 RBC and more than 100 WBCs. Goals of care were discussed in detail with patient's spouse/DPOA at bedside.? We discussed that unfortunately Mr. Pack is extremely acutely sick right now given multiorgan dysfunction with shock along with his baseline poor health.? We discussed there is a high chance that he would need multiple pressors, mechanical ventilation at anticoagulation for management.? We discussed that it is quite possible that his heart functions would deteriorate further given significant amount of myocardial injury determined through baseline troponin of 2500 and is possible if and when he makes through that he will be worse than his baseline functional and mental capacity. Ms. Mejia//DPOA states that patient would have not wanted to live like this and if she was in this place she would rather have comfort measures and want us to go ahead with comfort measures. After goal of care discussion with patient's /DPOA given critical illness of Mr. Pack presentation with multi organ failure, he was made comfort measure status only. Eventually patient in comfortable state with family at bedside on 02/06 at 7:20am. Additional Data Confirmation of as documented by pronouncing clinician: no pulse, no respirations and no heart sounds Family: at bedside Additional persons at bedside: nursing staff Attending/PCP notified?: I am attending Was code activated?: No Autopsy requested?: No Advance directives?: Yes Hospice patient?: Yes Discharge Plan Discharge Patient Disposition: Condition: Stable Probable Cause of Probable cause of : Non-ST elevation myocardial infarction (NSTEMI) DS Attestations Time Spent in /Discharge Care*: greater than 30 min Quality - AMI: AMI present?: Yes Quality - Stroke: CVA present?: No Quality - VTE: VTE present?: No Coding Level of Care Code 30966 Total time (in minutes) for Discharge: 40 Diagnoses Shock R57.9 Acute kidney injury N17.9 NSTEMI (non-ST elevated myocardial infarction) I21.4 Acute on chronic systolic heart failure I50.23 Hyperkalemia E87.5 High anion gap metabolic acidosis E87.29 Pneumonia J18.9 UTI (urinary tract infection) N39.0 Transaminitis R74.01 Lactic acidosis E87.20 Hematuria R31.9 Ascending aorta dilatation I77.810 A-fib I48.91 Goals of care, counseling/discussion Z71.89
--- NOTE | 2023-02-06 10:20 | PC.NURSE ---
Patient picked up by [facility] at this time.
--- NOTE | 2023-02-06 10:43 | PC.NURSE ---
Patient took any belongings at the bedside.
== END 2023-02-06 10:20 | disposition expired ==
LOC: ER 14:51 → MEDSURG 16:23
PROVIDERS: Admitting Provider Student in an Organized Health Care Education/Training Program; Emergency Provider Family Medicine; PCP Family Medicine; Visit Provider Student in an Organized Health Care Education/Training Program
DX: I22.2 Subsequent non-ST elevation (NSTEMI) myocardial infarction (principal); I50.23 Acute on chronic systolic (congestive) heart failure; J18.9 Pneumonia, unspecified organism; N17.9 Acute kidney failure, unspecified; E87.20 Acidosis, unspecified; N39.0 Urinary tract infection, site not specified; I21.4 Non-ST elevation (NSTEMI) myocardial infarction; I25.10 Atherosclerotic heart disease of native coronary artery without angina pectoris; Z95.1 Presence of aortocoronary bypass graft; Z86.16 Personal history of COVID-19; I95.9 Hypotension, unspecified; Z51.5 Encounter for palliative care; I48.91 Unspecified atrial fibrillation; I11.0 Hypertensive heart disease with heart failure; Z95.2 Presence of prosthetic heart valve; E87.5 Hyperkalemia
CPT/HCPCS: 36415; 71045; 80053; 81001; 82550; 83605; 83880; 84484; 85025; 87040; 87077; 87086; 87186; 87205; 93005; 96365; 96367; 96375; 99291; J1250; J1644; J1956; J2060; J2270; J3490; J7030; J7040